=== PATIENT | male | born 1945 | race Caucasian/White ===

== ENCOUNTER → 2019-02-15 | Outpatient (CLI) | payer MEDICARE ==
--- NOTE | 2019-02-15 12:36 | XR ---
EXAMINATION TYPE: XR lumbosacral spine min 4V DATE OF EXAM: 02/15/2019 COMPARISON: None HISTORY: Low back pain TECHNIQUE: Five-view lumbar spine FINDINGS: There 5 lumbar-type tubal bodies. Pedicles are intact. Facet degenerative changes are prese nt L4-5 L5-S1. Vascular calcification is within the aorta. Disc heights are preserved. Vertebral body heights are preserved. Alignment is normal. There is a 1.2 x 0.8 cm calcification at the inferior pole right kidney. IMPRESSION: 1. Degenerative facet changes lower lumbar spine. 2. Lower pole right renal calcification
== END | disposition home or self-care (01) ==
LOC: RADXRYALE 11:45
PROVIDERS: ATTEND Internal Medicine
DX: M47.816 Spondylosis without myelopathy or radiculopathy, lumbar region (principal)
CPT/HCPCS: 72110

== ENCOUNTER → 2019-03-15 | Outpatient (CLI) | payer MEDICARE ==
--- NOTE | 2019-03-15 11:57 | CT ---
EXAMINATION TYPE: CT chest wo con DATE OF EXAM: 03/15/2019 COMPARISON: None HISTORY: difficulty breathing. High resolution protocol CT DLP: 808.3 mGycm. Automated Exposure Control for Dose Reduction was Utilized. TECHNIQUE: CT scan of the thorax is performed without IV contrast. FINDINGS: LUNGS: There is diffuse interlobular septal thickening. Areas of pleural thickening and subsegmental consolidation are noted. Bronchiectasis is noted involving the lung bases and centrally. No pneumotho rax or pleural effusion. MEDIASTINUM: Lack of IV contrast is noted to limit evaluation for mediastinal and especially hilar ad enopathy. There are no definitive greater than 1 cm hilar or mediastinal lymph nodes. Heart size is p rominent there is coronary artery calcification. Atherosclerotic change aorta. Aorta appears of shoaib l caliber. OTHER: Postcholecystectomy changes are noted. Liver and spleen are prominent in size correlate for he patosplenomegaly. IMPRESSION: 1. Diffuse interlobular septal thickening in a pattern most typical of chronic interstitial lung dise ase. Central and basilar bronchiectasis noted correlate for pulmonary fibrosis. 2. Cardiomegaly and coronary artery calcification. 3. Correlate for hepatosplenomegaly.
== END | disposition home or self-care (01) ==
LOC: RADCTMAIN 10:39
PROVIDERS: ATTEND Internal Medicine
DX: J47.9 Bronchiectasis, uncomplicated (principal); J98.4 Other disorders of lung; J84.9 Interstitial pulmonary disease, unspecified; I51.7 Cardiomegaly; I25.10 Atherosclerotic heart disease of native coronary artery without angina pectoris
CPT/HCPCS: 71250

== ENCOUNTER 2019-09-16 07:28 | Emergency (ER) | payer MEDICARE ==
[2019-09-16] MEDS ORDERED: ONDANSETRON 4 MG/2 ML VIAL IVP STA ×2 (07:47→08:32)
[2019-09-16] MEDS ORDERED: SODIUM CHLORIDE 0.9% 1,000 ML IV STA (07:47)
[2019-09-16] MEDS ORDERED: MORPHINE SULFATE 4 MG/ML SYRINGE IV STA (07:47)
--- NOTE | 2019-09-16 07:50 | ED ---
Abdominal Pain HPI - General Chief Complaint: Abdominal Pain Stated Complaint: vomiting ,rt side abd pain Time Seen by Provider: 09/16/19 07:39 Source: patient, RN notes reviewed Mode of arrival: wheelchair Limitations: no limitations - History of Present Illness Initial Comments: 74-year-old male presents emergency Department with chief complaint right flank pain. Patient states the pain started around 2 AM sudden onset. Patient slipped in his back now for his lower abdomen. Patient states he runs of 1 had gallstones. He does admit to nausea vomiting. He states it mostly bilious in nature no hematemesis or coffee-ground emesis. He denies any dysuria hematuria no diarrhea or constipation. Patient does admit that he is primary fibrosis he is at his normal breathing, is on home O2 he denies feeling any chest pain or shortness breath from his usual baseline. - Related Data Previous Rx's Medication Instructions Recorded HYDROcodone/APAP 7.5-325MG [[place] 1 tab PO Q6HR PRN 3 Days #12 tab 09/16/19 7.5-325] Ketorolac [Toradol] 10 mg PO Q8HR #15 tab 09/16/19 Ondansetron Odt [Zofran Odt] 4 mg PO Q8HR PRN #14 tab 09/16/19 Tamsulosin [Flomax] 0.4 mg PO DAILY #7 cap 09/16/19 Allergies Allergy/AdvReac Type Severity Reaction Status Date / Time No Known Allergies Allergy Verified 09/16/19 07:38 Review of Systems ROS Statement: Those systems with pertinent positive or pertinent negative responses have been documented in the HPI. ROS Other: All systems not noted in ROS Statement are negative. Past Medical History Additional Past Medical History / Comment(s): pulmonary fibrosis History of Any Multi-Drug Resistant Organisms: None Reported Past Surgical History: Cholecystectomy Past Psychological History: No Psychological Hx Reported Smoking Status: Former smoker Past Alcohol Use History: None Reported Past Drug Use History: None Reported General Exam Limitations: no limitations General appearance: alert, in no apparent distress Head exam: Present: atraumatic, normocephalic, normal inspection Eye exam: Present: normal appearance, PERRL, EOMI. Absent: scleral icterus, conjunctival injection, periorbital swelling ENT exam: Present: normal exam, mucous membranes moist Neck exam: Present: normal inspection. Absent: tenderness, meningismus, lymphadenopathy Respiratory exam: Present: decreased breath sounds, other (Supplemental oxygen). Absent: normal lung sounds bilaterally, respiratory distress, wheezes, rales, rhonchi, stridor Cardiovascular Exam: Present: regular rate, normal rhythm, normal heart sounds. Absent: systolic murmur, diastolic murmur, rubs, gallop, clicks GI/Abdominal exam: Present: soft, tenderness (Minimal right-sided), normal bowel sounds. Absent: distended, guarding, rebound, rigid Back exam: Absent: CVA tenderness (R), CVA tenderness (L) Neurological exam: Present: alert, oriented X3 Skin exam: Present: warm, dry, intact, normal color. Absent: rash Course Vital Signs 09/16/19 07:36 Temperature 97.6 F Pulse Rate 74 Respiratory 20 Rate Blood Pressure 144/82 O2 Sat by Pulse 91 L Oximetry - Reevaluation(s) Reevaluation #1: 09/16/19 09:05 Patient updated on results, resting comfortably in bed states his pain is very minimal no nausea currently. Medical Decision Making - Medical Decision Making 74-year-old male presented for right flank pain. Patient has evidence of 1 cm ureteral stone. Patient's pain is controlled. Patient has mild leukocytosis with this is felt to be reactive. Urinalysis does not reveal any signs of infection. Patient CT does show some other nonspecific findings but patient's pain currently is from kidney stone. Patient's case discussed with israel Mcmahon. Patient will follow-up with urology should return parameters were discussed. Patient agrees to plan. - Lab Data Result diagrams: 09/16/19 07:45 09/16/19 07:45 Lab Results 09/16/19 09/16/19 09/16/19 Range/Units 07:45 07:45 08:33 WBC 19.7 H (3.8-10.6) k/uL RBC 5.96 H (4.30-5.90) m/uL Hgb 18.0 H (13.0-17.5) gm/dL Hct 53.5 H (39.0-53.0) % MCV 89.8 (80.0-100.0) fL MCH 30.1 (25.0-35.0) pg MCHC 33.6 (31.0-37.0) g/dL RDW 14.6 (11.5-15.5) % Plt Count 145 L (150-450) k/uL Neutrophils % 84 % Lymphocytes % 9 % Monocytes % 5 % Eosinophils % 1 % Basophils % 0 % Neutrophils # 16.5 H (1.3-7.7) k/uL Lymphocytes # 1.7 (1.0-4.8) k/uL Monocytes # 1.0 (0-1.0) k/uL Eosinophils # 0.2 (0-0.7) k/uL Basophils # 0.0 (0-0.2) k/uL Sodium 136 L (137-145) mmol/L Potassium 4.2 (3.5-5.1) mmol/L Chloride 99 (98-107) mmol/L Carbon Dioxide 28 (22-30) mmol/L Anion Gap 9 mmol/L BUN 20 (9-20) mg/dL Creatinine 0.86 (0.66-1.25) mg/dL Est GFR (CKD-EPI)AfAm >90 (>60 ml/min/1.73 sqM) Est GFR (CKD-EPI)NonAf 84 (>60 ml/min/1.73 sqM) Glucose 238 H (74-99) mg/dL Calcium 9.0 (8.4-10.2) mg/dL Total Bilirubin 2.0 H (0.2-1.3) mg/dL AST 51 (17-59) U/L ALT 48 (4-49) U/L Alkaline Phosphatase 128 H (38-126) U/L Total Protein 7.6 (6.3-8.2) g/dL Albumin 4.0 (3.5-5.0) g/dL Lipase 188 (23-300) U/L Urine Color Yellow Urine Appearance Clear (Clear) Urine pH 5.0 (5.0-8.0) Ur Specific [place] 1.015 (1.001-1.035) Urine Protein Negative (Negative) Urine Glucose (UA) Negative (Negative) Urine Ketones Negative (Negative) Urine Blood Moderate H (Negative) Urine Nitrite Negative (Negative) Urine Bilirubin Negative (Negative) Urine Urobilinogen <2.0 (<2.0) mg/dL Ur Leukocyte Esterase Negative (Negative) Urine RBC 62 H (0-5) /hpf Urine WBC 2 (0-5) /hpf Ur Squamous Epith Cells <1 (0-4) /hpf Urine Mucus Rare H (None) /hpf Disposition Clinical Impression: Ureteral calculi Disposition: HOME SELF-CARE Condition: Stable Instructions (If sedation given, give patient instructions): Kidney Stones (ED) Additional Instructions: Please return to the Emergency Department if symptoms worsen or any other concerns. Prescriptions: Tamsulosin [Flomax] 0.4 mg PO DAILY #7 cap HYDROcodone/APAP 7.5-325MG [[place] 7.5-325] 1 tab PO Q6HR PRN 3 Days #12 tab PRN Reason: pain Ketorolac [Toradol] 10 mg PO Q8HR #15 tab Ondansetron Odt [Zofran Odt] 4 mg PO Q8HR PRN #14 tab PRN Reason: Nausea Is patient prescribed a controlled substance at d/c from ED?: Yes When asked, does pt state using other controlled substances?: No If prescribed controlled substance>3 days was MAPS reviewed?: Prescribed <3 Days If opioid is for acute pain is fill amount 7 days or less?: Yes If Rx opioid, was Start Talking consent form obtained?: Yes Referrals: Savanna Magana MD [Primary Care Provider] - 1-2 days Jose Cruz Lacey MD [STAFF PHYSICIAN] - 1-2 days Time of Disposition: 09:11
[2019-09-16 07:56] LABS: Basophils % (A) 0 %; Eosinophils # (A) 0.2 k/uL (0-0.7); Eosinophils % (A) 1 %; HCT 53.5 % (39.0-53.0); Lymphocytes # (A) 1.7 k/uL (1.0-4.8); Lymphocytes % (A) 9 %; MCH 30.1 pg (25.0-35.0); MCHC 33.6 g/dL (31.0-37.0); MCV 89.8 fL (80.0-100.0); Mean Platelet Volume 6.9; Monocytes % (A) 5 %; Neutrophils # (A) 16.5 k/uL (1.3-7.7); Neutrophils % (A) 84 %; Platelet Count 145 k/uL (150-450); RBC 5.96 m/uL (4.30-5.90); RDW 14.6 % (11.5-15.5); WBC 19.7 k/uL (3.8-10.6)
[2019-09-16 08:05] LABS: ALT 48 U/L (4-49); AST 51 U/L (17-59); African American GFR (CKD) >90 (>60 ml/min/1.73 sqM); Alkaline Phosphatase 128 U/L (38-126); Anion Gap 9 mmol/L; Blood Urea Nitrogen 20 mg/dL (9-20); Carbon Dioxide 28 mmol/L (22-30); Chloride 99 mmol/L (98-107); Glucose 238 mg/dL (74-99); Non-African American GFR(CKD) 84 (>60 ml/min/1.73 sqM); Potassium 4.2 mmol/L (3.5-5.1); Sodium 136 mmol/L (137-145); Total Protein 7.6 g/dL (6.3-8.2)
[2019-09-16] MEDS ORDERED: KETOROLAC 30 MG/ML 1 ML VIAL IVP STA (08:37)
[2019-09-16 08:48] LABS: Appearance,Urine Clear (Clear); Bilirubin,Urine Negative (Negative); Blood,Urine Moderate (Negative); Color,Urine Yellow; Glucose,Urine (UA) Negative (Negative); Ketones,Urine Negative (Negative); Leukocyte Esterase,Urine Negative (Negative); Mucus,Urine Rare /hpf; Nitrite,Urine Negative (Negative); Protein,Urine Negative (Negative); RBC,Urine 62 /hpf (0-5); Specific Gravity,Urine 1.015 (1.001-1.035); Squamous Epithelial Cell,Urine <1 /hpf (0-4); Urobilinogen,Urine <2.0 mg/dL (<2.0); WBC,Urine 2 /hpf (0-5)
--- NOTE | 2019-09-16 08:55 | CT ---
EXAMINATION TYPE: CT abdomen pelvis wo con DATE OF EXAM: 09/16/2019 COMPARISON: CT chest dated 03/15/2019 HISTORY: Rt flank pain CT DLP: 849.7 mGycm Automated exposure control for dose reduction was used. TECHNIQUE: Helical acquisition of images was performed from the lung bases through the pelvis. FINDINGS: LUNG BASES: Honeycombing at the lung bases and advanced fibrotic change is seen with numerous areas o f pleural-parenchymal scarring. Peribronchial cuffing is also seen bilaterally as well as pulmonary v ein engorgement. LIVER/GB: There is intrahepatic air. This area does predominate centrally and is confirmed to be pneu mobilia atelectasis is present in the cystic duct remnant and common bile duct on coronal images. Inf erior vena cava is flattened in the upper abdomen. Gallbladder is surgically absent. PANCREAS: No significant abnormality is seen. SPLEEN: Spleen is enlarged. Spleen measures 15.8 cm in caudal dimension. Small splenule is noted. ADRENALS: No significant abnormality is seen. KIDNEYS: 3 mm calculus at the left lower pole is nonobstructing. There are 3 right upper pole calculi within right upper pole calyces measuring up to 4 mm. The right renal pelvis is markedly dilated wit h moderate dilatation of the calyces. Right obstructing proximal ureteral calculus measures 1.0 cm. T here is surrounding right perinephric fat stranding greater than on the left from acute obstructive u ropathy. ADENOPATHY: No greater than 1 cm short axis lymph node in the abdomen or pelvis. OSSEOUS STRUCTURES: Multiple nonspecific sclerotic foci of the pelvis. Diffuse osseous demineralizat ion. Mild multilevel degenerative change of the spine. BOWEL: Sigmoid diverticula are scattered throughout without localized pericolonic fat stranding. Pro minence of the vasa recta throughout the abdomen. Oral contrast limits evaluation of the bowel. OTHER: Extensive atherosclerosis of the abdominal aorta and its branches. IMPRESSION: 1. OBSTRUCTING 1 CM CALCULUS IN THE PROXIMAL RIGHT URETER CREATES OVERALL SEVERE RIGHT HYDROURETERONE PHROSIS. MULTIPLE NONOBSTRUCTING CALCULI ARE SEEN WITHIN THE SUPERIOR CALYCES OF THE RIGHT KIDNEY AND PUNCTATE CALCULUS THAT IS NONOBSTRUCTING IS ALSO SEEN IN THE LEFT LOWER POLE. OBSTRUCTIVE UROPATHY I N THE RIGHT RESULTS IN MODERATE PERINEPHRIC FAT STRANDING. SUPERIMPOSED PYELONEPHRITIS SHOULD ALSO BE CONSIDERED. 2. THERE IS NEW PNEUMOBILIA OF UNKNOWN ETIOLOGY. 3. EXTENSIVE FIBROTIC CHANGE OF THE LUNGS AND PERIBRONCHIAL CUFFING. 4. SPLENOMEGALY. 5. EXTENSIVE ATHEROSCLEROSIS OF THE ABDOMINAL AORTA AND ITS BRANCHES.
[2019-09-16 09:27] VITALS: BP 132/86; PULSE 86; RESP 16; TEMP 98
== END 2019-09-16 09:26 | disposition home or self-care (01) ==
LOC: EC 07:28
DX: N13.2 Hydronephrosis with renal and ureteral calculous obstruction (principal); D72.829 Elevated white blood cell count, unspecified; Z90.49 Acquired absence of other specified parts of digestive tract; Z87.891 Personal history of nicotine dependence
CPT/HCPCS: 99284; 96374; 96375 ×2; 96376; 96361; 36415; 80053; 83690; 85025; 81001; 74176; J2270; J2405; J1885

== ENCOUNTER → 2019-10-04 | Outpatient (CLI) | payer MEDICARE ==
--- NOTE | 2019-10-04 14:13 | XR ---
EXAMINATION TYPE: XR KUB DATE OF EXAM: 10/04/2019 2:07 PM CLINICAL HISTORY: Right ureter calculi TECHNIQUE: Two supine KUB images of the abdomen are obtained. COMPARISON: CT abdomen and pelvis September 16, 2019.. FINDINGS: The roughly 3 tiny calculi upper to mid pole calyx right kidney measuring up to 4 mm in siz e on CT are less well seen on x-ray. The larger 10 mm calculus proximal right ureter at roughly L3-L4 disc space level on CT also not clearly seen on x-ray. Overall nonobstructive bowel gas pattern. Visualized osseous structures are intact. IMPRESSION: As above.
== END | disposition home or self-care (01) ==
LOC: RADXRYALE 13:47
PROVIDERS: ATTEND Urology
DX: N20.1 Calculus of ureter (principal)
CPT/HCPCS: 74018

== ENCOUNTER 2019-11-17 13:44 | Inpatient (IN) | payer MEDICARE ==
--- NOTE | 2019-11-17 14:01 | ED ---
SOB HPI - General Chief Complaint: Shortness of Breath Stated Complaint: SOB Time Seen by Provider: 11/17/19 14:00 Source: patient, family, EMS, RN notes reviewed, old records reviewed Mode of arrival: EMS Limitations: no limitations - History of Present Illness Initial Comments: This is a 74 show male DF for evaluation patient does have shortness of breath today. Also complaining of some blood in the urine and abdominal pain. History of kidney stones history of severe pulmonary fibrosis. No recent known travel history or sick contacts. Recent inpatient hospitalization secondary to kidney procedure, at this point still complaining of shortness of breath MD Complaint: shortness of breath, cough -: week(s) Severity: moderate Severity scale (1-10): 4 Quality: aching Consistency: constant Improves With: nothing Worsens With: nothing Known History Of: COPD, congestive heart failure Context: recent URI (History of same) Associated Symptoms: chest pain - Related Data Home Medications Medication Instructions Recorded Confirmed ALPRAZolam [Xanax] 0.25 mg PO BID PRN 11/17/19 11/17/19 Ciprofloxacin HCl [Cipro] 500 mg PO Q12HR 11/17/19 11/17/19 Omeprazole Magnesium [PriLOSEC OTC] 20 mg PO HS 11/17/19 11/17/19 Tamsulosin [Flomax] 0.4 mg PO HS 11/17/19 11/17/19 predniSONE 10 mg PO DAILY 11/17/19 11/17/19 Allergies Allergy/AdvReac Type Severity Reaction Status Date / Time No Known Allergies Allergy Verified 11/17/19 14:59 Review of Systems ROS Statement: Those systems with pertinent positive or pertinent negative responses have been documented in the HPI. ROS Other: All systems not noted in ROS Statement are negative. Past Medical History Additional Past Medical History / Comment(s): pulmonary fibrosis History of Any Multi-Drug Resistant Organisms: None Reported Past Surgical History: Cholecystectomy Past Psychological History: No Psychological Hx Reported Smoking Status: Former smoker Past Alcohol Use History: None Reported Past Drug Use History: None Reported General Exam General appearance: alert, in no apparent distress, anxious, in distress Head exam: Present: atraumatic, normocephalic, normal inspection Eye exam: Present: normal appearance, PERRL, EOMI. Absent: scleral icterus, conjunctival injection, periorbital swelling ENT exam: Present: normal exam, mucous membranes moist Neck exam: Present: normal inspection. Absent: tenderness, meningismus, lymphadenopathy Respiratory exam: Present: normal lung sounds bilaterally. Absent: respiratory distress, wheezes, rales, rhonchi, stridor Cardiovascular Exam: Present: regular rate, normal rhythm, normal heart sounds. Absent: systolic murmur, diastolic murmur, rubs, gallop, clicks GI/Abdominal exam: Present: soft, normal bowel sounds. Absent: distended, tenderness, guarding, rebound, rigid Extremities exam: Present: normal inspection, full ROM, normal capillary refill. Absent: tenderness, pedal edema, joint swelling, calf tenderness Back exam: Present: normal inspection Neurological exam: Present: alert, oriented X3, CN II-XII intact Psychiatric exam: Present: normal affect, normal mood Skin exam: Present: warm, dry, intact, normal color. Absent: rash Course Vital Signs 11/17/19 11/17/19 11/17/19 13:45 13:48 13:59 Pulse Rate 107 H 105 H Respiratory 20 22 Rate Blood Pressure 116/73 O2 Sat by Pulse 74 L 89 L Oximetry 11/17/19 11/17/19 11/17/19 14:51 15:54 16:46 Pulse Rate 101 H 104 H Respiratory 20 22 Rate Blood Pressure 110/74 102/70 O2 Sat by Pulse 92 L 84 L 91 L Oximetry - Reevaluation(s) Reevaluation #1: 11/17/19 17:04 medical record is reviewed Reevaluation #2: 11/17/19 17:04 improved is on supplemental o2 - Consultations Consultation #1: spoke dustin iraheta for admission Medical Decision Making - Lab Data Result diagrams: 11/17/19 14:09 11/17/19 14:09 Lab Results 11/17/19 11/17/19 11/17/19 Range/Units 14:09 14:09 14:09 WBC 12.9 H (3.8-10.6) k/uL RBC 4.86 (4.30-5.90) m/uL Hgb 14.3 D (13.0-17.5) gm/dL Hct 43.3 (39.0-53.0) % MCV 89.1 (80.0-100.0) fL MCH 29.5 (25.0-35.0) pg MCHC 33.1 (31.0-37.0) g/dL RDW 16.0 H (11.5-15.5) % Plt Count 224 (150-450) k/uL Neutrophils % 87 % Lymphocytes % 7 % Monocytes % 4 % Eosinophils % 0 % Basophils % 1 % Neutrophils # 11.2 H (1.3-7.7) k/uL Lymphocytes # 0.9 L (1.0-4.8) k/uL Monocytes # 0.5 (0-1.0) k/uL Eosinophils # 0.1 (0-0.7) k/uL Basophils # 0.1 (0-0.2) k/uL Poikilocytosis Slight Anisocytosis Slight PT 11.0 (9.0-12.0) sec INR 1.1 (<1.2) APTT 24.4 (22.0-30.0) sec Sodium 131 L (137-145) mmol/L Potassium 4.1 (3.5-5.1) mmol/L Chloride 94 L (98-107) mmol/L Carbon Dioxide 27 (22-30) mmol/L Anion Gap 10 mmol/L BUN 9 (9-20) mg/dL Creatinine 0.50 L (0.66-1.25) mg/dL Est GFR (CKD-EPI)AfAm >90 (>60 ml/min/1.73 sqM) Est GFR (CKD-EPI)NonAf >90 (>60 ml/min/1.73 sqM) Glucose 192 H (74-99) mg/dL Plasma Lactic Acid [place] (0.7-2.0) mmol/L Calcium 8.7 (8.4-10.2) mg/dL Magnesium 2.1 (1.6-2.3) mg/dL Total Bilirubin 2.0 H (0.2-1.3) mg/dL AST 40 (17-59) U/L ALT 30 (4-49) U/L Alkaline Phosphatase 136 H (38-126) U/L Troponin I (0.000-0.034) ng/mL NT-Pro-B Natriuret Pep pg/mL Total Protein 6.8 (6.3-8.2) g/dL Albumin 3.3 L (3.5-5.0) g/dL Urine Color Urine Appearance (Clear) Urine pH (5.0-8.0) Ur Specific [place] (1.001-1.035) Urine Protein (Negative) Urine Glucose (UA) (Negative) Urine Ketones (Negative) Urine Blood (Negative) Urine Nitrite (Negative) Urine Bilirubin (Negative) Urine Urobilinogen (<2.0) mg/dL Ur Leukocyte Esterase (Negative) Urine RBC (0-5) /hpf Urine WBC (0-5) /hpf Ur Squamous Epith Cells (0-4) /hpf Hyaline Casts (0-2) /lpf Urine Mucus (None) /hpf 11/17/19 11/17/19 11/17/19 Range/Units 14:09 14:09 14:09 WBC (3.8-10.6) k/uL RBC (4.30-5.90) m/uL Hgb (13.0-17.5) gm/dL Hct (39.0-53.0) % MCV (80.0-100.0) fL MCH (25.0-35.0) pg MCHC (31.0-37.0) g/dL RDW (11.5-15.5) % Plt Count (150-450) k/uL Neutrophils % % Lymphocytes % % Monocytes % % Eosinophils % % Basophils % % Neutrophils # (1.3-7.7) k/uL Lymphocytes # (1.0-4.8) k/uL Monocytes # (0-1.0) k/uL Eosinophils # (0-0.7) k/uL Basophils # (0-0.2) k/uL Poikilocytosis Anisocytosis PT (9.0-12.0) sec INR (<1.2) APTT (22.0-30.0) sec Sodium (137-145) mmol/L Potassium (3.5-5.1) mmol/L Chloride (98-107) mmol/L Carbon Dioxide (22-30) mmol/L Anion Gap mmol/L BUN (9-20) mg/dL Creatinine (0.66-1.25) mg/dL Est GFR (CKD-EPI)AfAm (>60 ml/min/1.73 sqM) Est GFR (CKD-EPI)NonAf (>60 ml/min/1.73 sqM) Glucose (74-99) mg/dL Plasma Lactic Acid [place] 1.7 (0.7-2.0) mmol/L Calcium (8.4-10.2) mg/dL Magnesium (1.6-2.3) mg/dL Total Bilirubin (0.2-1.3) mg/dL AST (17-59) U/L ALT (4-49) U/L Alkaline Phosphatase (38-126) U/L Troponin I 0.413 H* (0.000-0.034) ng/mL NT-Pro-B Natriuret Pep 2060 pg/mL Total Protein (6.3-8.2) g/dL Albumin (3.5-5.0) g/dL Urine Color Urine Appearance (Clear) Urine pH (5.0-8.0) Ur Specific [place] (1.001-1.035) Urine Protein (Negative) Urine Glucose (UA) (Negative) Urine Ketones (Negative) Urine Blood (Negative) Urine Nitrite (Negative) Urine Bilirubin (Negative) Urine Urobilinogen (<2.0) mg/dL Ur Leukocyte Esterase (Negative) Urine RBC (0-5) /hpf Urine WBC (0-5) /hpf Ur Squamous Epith Cells (0-4) /hpf Hyaline Casts (0-2) /lpf Urine Mucus (None) /hpf 11/17/19 Range/Units 16:43 WBC (3.8-10.6) k/uL RBC (4.30-5.90) m/uL Hgb (13.0-17.5) gm/dL Hct (39.0-53.0) % MCV (80.0-100.0) fL MCH (25.0-35.0) pg MCHC (31.0-37.0) g/dL RDW (11.5-15.5) % Plt Count (150-450) k/uL Neutrophils % % Lymphocytes % % Monocytes % % Eosinophils % % Basophils % % Neutrophils # (1.3-7.7) k/uL Lymphocytes # (1.0-4.8) k/uL Monocytes # (0-1.0) k/uL Eosinophils # (0-0.7) k/uL Basophils # (0-0.2) k/uL Poikilocytosis Anisocytosis PT (9.0-12.0) sec INR (<1.2) APTT (22.0-30.0) sec Sodium (137-145) mmol/L Potassium (3.5-5.1) mmol/L Chloride (98-107) mmol/L Carbon Dioxide (22-30) mmol/L Anion Gap mmol/L BUN (9-20) mg/dL Creatinine (0.66-1.25) mg/dL Est GFR (CKD-EPI)AfAm (>60 ml/min/1.73 sqM) Est GFR (CKD-EPI)NonAf (>60 ml/min/1.73 sqM) Glucose (74-99) mg/dL Plasma Lactic Acid [place] (0.7-2.0) mmol/L Calcium (8.4-10.2) mg/dL Magnesium (1.6-2.3) mg/dL Total Bilirubin (0.2-1.3) mg/dL AST (17-59) U/L ALT (4-49) U/L Alkaline Phosphatase (38-126) U/L Troponin I (0.000-0.034) ng/mL NT-Pro-B Natriuret Pep pg/mL Total Protein (6.3-8.2) g/dL Albumin (3.5-5.0) g/dL Urine Color Yellow Urine Appearance Clear (Clear) Urine pH 6.0 (5.0-8.0) Ur Specific [place] 1.014 (1.001-1.035) Urine Protein Trace H (Negative) Urine Glucose (UA) Negative (Negative) Urine Ketones Negative (Negative) Urine Blood Small H (Negative) Urine Nitrite Negative (Negative) Urine Bilirubin Negative (Negative) Urine Urobilinogen <2.0 (<2.0) mg/dL Ur Leukocyte Esterase Negative (Negative) Urine RBC 28 H (0-5) /hpf Urine WBC 1 (0-5) /hpf Ur Squamous Epith Cells <1 (0-4) /hpf Hyaline Casts 1 (0-2) /lpf Urine Mucus Moderate H (None) /hpf - EKG Data -: EKG Interpreted by Me (EKG shows tachycardia rate of 104 NM 160 QRS 90 QTC 444) Critical Care Time Critical Care Time: Yes Total Critical Care Time: 31 Disposition Clinical Impression: Acute exacerbation of chronic obstructive pulmonary disease, Acute respiratory failure, Hypoxia, Congestive heart failure Disposition: ADMITTED IP TO THIS HOSP Condition: Serious Is patient prescribed a controlled substance at d/c from ED?: No Referrals: Savanna Magana MD [Primary Care Provider] - 1-2 days
[2019-11-17] MEDS ORDERED: IPRATROPIUM-ALBUTEROL 3 ML NEB INHALATION STA ×2 (14:02→16:55)
[2019-11-17] MEDS ORDERED: SODIUM CHLORIDE 0.9% 1,000 ML IV STA (14:02)
[2019-11-17 14:30] LABS: Anisocytosis Slight; Basophils # (A) 0.1 k/uL (0-0.2); Basophils % (A) 1 %; Eosinophils # (A) 0.1 k/uL (0-0.7); Eosinophils % (A) 0 %; HCT 43.3 % (39.0-53.0); Lymphocytes # (A) 0.9 k/uL (1.0-4.8); Lymphocytes % (A) 7 %; MCH 29.5 pg (25.0-35.0); MCHC 33.1 g/dL (31.0-37.0); MCV 89.1 fL (80.0-100.0); Mean Platelet Volume 6.9; Monocytes # (A) 0.5 k/uL (0-1.0); Monocytes % (A) 4 %; Neutrophils # (A) 11.2 k/uL (1.3-7.7); Neutrophils % (A) 87 %; Platelet Count 224 k/uL (150-450); Poikilocytosis Slight; RBC 4.86 m/uL (4.30-5.90); WBC 12.9 k/uL (3.8-10.6)
--- NOTE | 2019-11-17 14:34 | XR ---
EXAMINATION TYPE: XR chest 1V portable DATE OF EXAM: 11/17/2019 Comparison: 09/22/2019 Clinical History: 74-year-old male shortness of breath Findings: Heart is enlarged. Increased diffuse interstitial and nonconflicting airspace opacities. No sizable e ffusion on the frontal view. Impression: Cardiomegaly and developing diffuse bilateral airspace disease. Correlate for pulmonary edema.
[2019-11-17 14:36] LABS: HGB 14.3 gm/dL (13.0-17.5)
[2019-11-17 14:40] LABS: ALT 30 U/L (4-49); AST 40 U/L (17-59); African American GFR (CKD) >90 (>60 ml/min/1.73 sqM); Albumin 3.3 g/dL (3.5-5.0); Alkaline Phosphatase 136 U/L (38-126); Anion Gap 10 mmol/L; Blood Urea Nitrogen 9 mg/dL (9-20); Calcium 8.7 mg/dL (8.4-10.2); Carbon Dioxide 27 mmol/L (22-30); Chloride 94 mmol/L (98-107); Glucose 192 mg/dL (74-99); Magnesium 2.1 mg/dL (1.6-2.3); Non-African American GFR(CKD) >90 (>60 ml/min/1.73 sqM); Potassium 4.1 mmol/L (3.5-5.1); Sodium 131 mmol/L (137-145); Total Protein 6.8 g/dL (6.3-8.2)
[2019-11-17 14:45] LABS: INR 1.1 (<1.2); Partial Thromboplastin Time 24.4 sec (22.0-30.0)
--- NOTE | 2019-11-17 15:48 | CT ---
EXAMINATION TYPE: CT abdomen pelvis wo con DATE OF EXAM: 11/17/2019 COMPARISON: 09/16/2019 HISTORY: flank pain CT DLP: 986.8 mGycm Examination of the solid and hollow viscera is limited given the lack of contrast. Unenhanced CT of t he abdomen and pelvis was performed. Patient motion limits evaluation. FINDINGS: LUNG BASES: No evidence for nodule. No evidence for infiltrate. Basilar pulmonary fibrosis identified . LIVER/GB: The gallbladder is unremarkable. No space-occupying hepatic lesion. PANCREAS: No pancreatic mass identified. No inflammatory process seen. SPLEEN: Splenomegaly with craniocaudal measurement of 15 cm. No intrasplenic lesions seen. ADRENALS: No adrenal nodules identified. No evidence for thickening. KIDNEYS: No evidence for renal mass. Nonobstructing bilateral nephrolithiasis. No hydronephrosis. BOWEL: Appendix has a normal appearance. No evidence of bowel obstruction. No inflammatory process. Lymph nodes: No evidence for adenopathy greater than 1 cm. Abdominal aorta: Atheromatous changes seen. No evidence for aneurysm. Genital organs: No significant abnormality. Other: No significant abnormality. IMPRESSION: 1. Nonobstructing nephrolithiasis bilaterally. 2. Sigmoid diverticulosis without diverticulitis. 3. Pulmonary fibrosis. 4. Splenomegaly.
[2019-11-17] MEDS ORDERED: IPRATROPIUM-ALBUTEROL 3 ML NEB INHALATION PRN (16:55)
[2019-11-17] MEDS ORDERED: methylPREDNISolone SOD SUCCI 125 MG/2 ML VIAL IV STA (16:55)
[2019-11-17 17:00] LABS: Appearance,Urine Clear (Clear); Bilirubin,Urine Negative (Negative); Blood,Urine Small (Negative); Color,Urine Yellow; Glucose,Urine (UA) Negative (Negative); Hyaline Casts,Urine 1 /lpf (0-2); Ketones,Urine Negative (Negative); Leukocyte Esterase,Urine Negative (Negative); Mucus,Urine Moderate /hpf; Nitrite,Urine Negative (Negative); Protein,Urine Trace (Negative); RBC,Urine 28 /hpf (0-5); Specific Gravity,Urine 1.014 (1.001-1.035); Squamous Epithelial Cell,Urine <1 /hpf (0-4); Urobilinogen,Urine <2.0 mg/dL (<2.0); WBC,Urine 1 /hpf (0-5)
[2019-11-17] MEDS: SODIUM CHLORIDE 0.9% 1,000 ML IV SCH (17:39)
--- NOTE | 2019-11-17 17:39 | P.HPIM ---
History of Present Illness Patient is a pleasant 74-year-old male with known history of pulmonary fibrosis exists 5 L of oxygen at home came in with complaints of shortness of breath denied any fever chills chest x-ray did not show pneumonia. Patient denied any orthopnea proximal nocturnal dyspnea. Patient denied any chest pain. Patient does have mildly elevated troponin of 0.[address]-T wave changes in the EKG. Patient denied any fever chills or significant cough. Patient is presently on Ventimask. Patient is bit hyponatremic chest x-ray looks like pulmonary congestion but mostly probably pulmonary fibrosis. Patient does have significant crackles bilaterally no wheezing and exam patient does have mildly elevated BNP of 2000 along with mildly elevated troponin of 0.413 patient although doesn't have any JVD or pedal edema on exam. Patient is comparing of hematuria patient has 28 white blood cell count in the urine and nonobstructive nephrolithiasis on the CAT scan of the abdomen and also diverticulosis. Review of Systems REVIEW OF SYSTEMS: CONSTITUTIONAL: No fever, no malaise, no fatigue. HEENT: No recent visual problems or hearing problems. Denied any sore throat. CARDIOVASCULAR: No chest pain, orthopnea, PND, no palpitations, no syncope. PULMONARY: no hemoptysis. GASTROINTESTINAL: No diarrhea, no nausea, no vomiting, no abdominal pain. NEUROLOGICAL: No headaches, no weakness, no numbness. HEMATOLOGICAL: Denies any bleeding or petechiae. GENITOURINARY: Denies any burning micturition, frequency, or urgency. MUSCULOSKELETAL/RHEUMATOLOGICAL: Denies any joint pain, swelling, or any muscle pain. ENDOCRINE: Denies any polyuria or polydipsia. The rest of the 14-point review of systems is negative. Past Medical History Additional Past Medical History / Comment(s): pulmonary fibrosis History of Any Multi-Drug Resistant Organisms: None Reported Past Surgical History: Cholecystectomy Past Psychological History: No Psychological Hx Reported Smoking Status: Former smoker Past Alcohol Use History: None Reported Past Drug Use History: None Reported Medications and Allergies Home Medications Medication Instructions Recorded Confirmed Type ALPRAZolam [Xanax] 0.25 mg PO BID PRN 11/17/19 11/17/19 History Ciprofloxacin HCl [Cipro] 500 mg PO Q12HR 11/17/19 11/17/19 History Omeprazole Magnesium [PriLOSEC OTC] 20 mg PO HS 11/17/19 11/17/19 History Tamsulosin [Flomax] 0.4 mg PO HS 11/17/19 11/17/19 History predniSONE 10 mg PO DAILY 11/17/19 11/17/19 History Allergies Allergy/AdvReac Type Severity Reaction Status Date / Time No Known Allergies Allergy Verified 11/17/19 14:59 Physical Exam Vitals: Vital Signs Pulse Resp BP Pulse Ox 11/17/19 16:46 104 H 22 102/70 91 L 11/17/19 15:54 84 L 11/17/19 14:51 101 H 20 110/74 92 L 11/17/19 13:59 22 11/17/19 13:48 105 H 89 L 11/17/19 13:45 107 H 20 116/73 74 L Intake and Output 11/17/19 11/17/19 11/17/19 06:59 14:59 22:59 Other: Weight 83.915 kg PHYSICAL EXAMINATION: GENERAL: The patient is alert and oriented x3, not in any acute distress. Well developed, well nourished. HEENT: Pupils are round and equally reacting to light. EOMI. No scleral icterus. No conjunctival pallor. Normocephalic, atraumatic. No pharyngeal erythema. No thyromegaly. CARDIOVASCULAR: S1 and S2 present. No murmurs, rubs, or gallops. PULMONARY: Diffuse bilateral fine crackles on exam ABDOMEN: Soft, nontender, nondistended, normoactive bowel sounds. No palpable organomegaly. MUSCULOSKELETAL: No joint swelling or deformity. EXTREMITIES: No cyanosis, clubbing, or pedal edema. NEUROLOGICAL: Gross neurological examination did not reveal any focal deficits. SKIN: No rashes. Results CBC & Chem 7: 11/17/19 14:09 11/17/19 14:09 Labs: Abnormal Lab Results - Last 24 Hours (Table) 11/17/19 11/17/19 11/17/19 Range/Units 14:09 14:09 14:09 WBC 12.9 H (3.8-10.6) k/uL RDW 16.0 H (11.5-15.5) % Neutrophils # 11.2 H (1.3-7.7) k/uL Lymphocytes # 0.9 L (1.0-4.8) k/uL Sodium 131 L (137-145) mmol/L Chloride 94 L (98-107) mmol/L Creatinine 0.50 L (0.66-1.25) mg/dL Glucose 192 H (74-99) mg/dL Total Bilirubin 2.0 H (0.2-1.3) mg/dL Alkaline Phosphatase 136 H (38-126) U/L Troponin I 0.413 H* (0.000-0.034) ng/mL Albumin 3.3 L (3.5-5.0) g/dL Urine Protein (Negative) Urine Blood (Negative) Urine RBC (0-5) /hpf Urine Mucus (None) /hpf 11/17/19 Range/Units 16:43 WBC (3.8-10.6) k/uL RDW (11.5-15.5) % Neutrophils # (1.3-7.7) k/uL Lymphocytes # (1.0-4.8) k/uL Sodium (137-145) mmol/L Chloride (98-107) mmol/L Creatinine (0.66-1.25) mg/dL Glucose (74-99) mg/dL Total Bilirubin (0.2-1.3) mg/dL Alkaline Phosphatase (38-126) U/L Troponin I (0.000-0.034) ng/mL Albumin (3.5-5.0) g/dL Urine Protein Trace H (Negative) Urine Blood Small H (Negative) Urine RBC 28 H (0-5) /hpf Urine Mucus Moderate H (None) /hpf Assessment and Plan Plan: -Acute on chronic hypoxic respiratory failure: Probably secondary to flareup of our exacerbation of pulmonary fibrosis patient was started on systemic steroids continue with inhalational treatments as needed. -Hyponatremia appears to be mostly hypovolemic hyponatremia rather than hypervolemic hyponatremia patient will be hydrated gently. My suspicion for congestive heart failure is low patient has mildly elevated BNP but there is no JVD or pedal edema on exam chest x-ray findings of pulmonary congestion is probably secondary to fibrosis rather than pulmonary edema. No evidence of pneumonia. Echocardiogram will be obtained as well -Bilateral nonobstructive nephrolithiasis -Mildly elevated troponins will repeat couple more troponins and cardiology will evaluate the patient troponins elevation is most probably suffered from hypoxemia although I cannot completely rule out non-ST elevation microinfarction -Leukocytosis reactive in nature -Tachycardia secondary to hypoxemia
[2019-11-17] MEDS ORDERED: methylPREDNISolone SOD SUCCI 125 MG/2 ML VIAL IV SCH (18:00)
[2019-11-17 18:09] LABS: Creatine Kinase MB 3.1 ng/mL (0.0-2.4)
[2019-11-17 18:10] LABS: Troponin I 0.565 ng/mL (0.000-0.034)
[2019-11-17] MEDS: ALBUTEROL NEBULIZED 2.5 MG/3 ML INHALATION SCH (19:18)
[2019-11-17] MEDS: FAMOTIDINE 20 MG TAB PO SCH (20:08)
[2019-11-17] MEDS ORDERED: ALPRAZolam 0.25 MG TAB PO PRN (20:29)
[2019-11-17 20:34] LABS: Glucose,Whole Blood 161 mg/dL (75-99)
[2019-11-17] MEDS: TAMSULOSIN 0.4 MG CAP.ER.24H PO SCH (21:13)
[2019-11-18] MEDS: methylPREDNISolone SOD SUCCI 40 MG/ML 1 ML VIAL IV SCH ×4 (00:09→23:29)
[2019-11-18 00:38] LABS: Glucose,Whole Blood 299 mg/dL (75-99)
[2019-11-18 06:09] LABS: Glucose,Whole Blood 232 mg/dL (75-99)
[2019-11-18] MEDS: INSULIN ASPART (NovoLOG) 100 UNIT/ML VIAL SQ SCH ×4 (06:28→20:53)
[2019-11-18] MEDS: ALBUTEROL NEBULIZED 2.5 MG/3 ML INHALATION SCH ×4 (07:54→20:22)
[2019-11-18 08:11] LABS: HCT 43.6 % (39.0-53.0); HGB 14.3 gm/dL (13.0-17.5); MCH 29.8 pg (25.0-35.0); MCHC 32.9 g/dL (31.0-37.0); MCV 90.5 fL (80.0-100.0); Mean Platelet Volume 7.1; Platelet Count 219 k/uL (150-450); Poikilocytosis Slight; RBC 4.82 m/uL (4.30-5.90); RDW 15.9 % (11.5-15.5)
[2019-11-18 08:20] LABS: African American GFR (CKD) >90 (>60 ml/min/1.73 sqM); Anion Gap 8 mmol/L; Blood Urea Nitrogen 15 mg/dL (9-20); Calcium 8.5 mg/dL (8.4-10.2); Carbon Dioxide 29 mmol/L (22-30); Chloride 98 mmol/L (98-107); Glucose 215 mg/dL (74-99); Non-African American GFR(CKD) >90 (>60 ml/min/1.73 sqM); Potassium 4.2 mmol/L (3.5-5.1); Sodium 135 mmol/L (137-145)
[2019-11-18] MEDS: FAMOTIDINE 20 MG TAB PO SCH ×2 (08:48→20:53)
[2019-11-18] MEDS: ENOXAPARIN 40 MG/0.4 ML SYRINGE SQ SCH (08:48)
[2019-11-18] MEDS: SODIUM CHLORIDE 0.9% 1,000 ML IV SCH ×2 (10:39→23:29)
[2019-11-18] MEDS: DOXYCYCLINE 100 MG CAP PO SCH ×2 (10:46→20:53)
--- NOTE | 2019-11-18 11:20 | P.CRDCN ---
History of Present Illness Consult date: 11/18/19 History of present illness: This is a 74-year-old gentleman with history of pulmonary fibrosis who is on 5 L oxygen at home. Patient has been having some episodes of shortness of breath and has been on steroids with tapering doses. Recently his her steroids were cut back to 5 mg. Patient claims he became short of breath again. He did complain of some orthopnea. Denied any chest pain. Patient came to the hospital because of this ongoing symptoms. His troponin was mildly elevated and 10 is consistent with acute coronary syndrome/non-STEMI. His proBNP is also elevated size to possible CHF. Whole patient has a combination of pulmonary fibrosis with soap and CHF and possible non-STEMI. We will get an echocardiogram to assess LV function. If there is any segmental wall motion defects or LV dysfunction, patient definitely needs cardiac catheterization to rule out underlying ischemic heart disease. Patient seemed to be feeling slightly better since admission to the hospital here. EKG showed mild nonspecific ST-T abnormalities. I will add small dose of diuretics along with nitrates and aspirin, while waiting for the echo report. 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 History of Any Multi-Drug Resistant Organisms: None Reported Past Surgical History: Cholecystectomy Past Anesthesia/Blood Transfusion Reactions: No Reported Reaction Smoking Status: Former smoker Medications and Allergies Home Medications Medication Instructions Recorded Confirmed Type ALPRAZolam [Xanax] 0.25 mg PO BID PRN 11/17/19 11/17/19 History Ciprofloxacin HCl [Cipro] 500 mg PO Q12HR 11/17/19 11/17/19 History Omeprazole Magnesium [PriLOSEC OTC] 20 mg PO HS 11/17/19 11/17/19 History Tamsulosin [Flomax] 0.4 mg PO HS 11/17/19 11/17/19 History predniSONE 10 mg PO DAILY 11/17/19 11/17/19 History Allergies Allergy/AdvReac Type Severity Reaction Status Date / Time No Known Allergies Allergy Verified 11/17/19 14:59 Physical Exam Vitals: Vital Signs Temp Pulse Pulse Resp BP BP Pulse Ox 11/18/19 09:02 23 11/18/19 08:46 97.5 F L 101 H 23 101/69 91 L 11/18/19 07:56 90 L 11/18/19 03:40 97.7 F 83 24 110/67 98 11/18/19 00:00 98.4 F 94 24 100/64 94 L 11/17/19 21:53 95 11/17/19 20:00 98.0 F 101 H 26 H 102/69 89 L 11/17/19 19:16 89 L 11/17/19 19:00 102 H 28 H 122/71 87 L 11/17/19 18:28 96 20 97/69 93 L 11/17/19 17:41 97.5 F L 98 22 104/74 90 L 11/17/19 16:46 104 H 22 102/70 91 L 11/17/19 15:54 84 L 11/17/19 14:51 101 H 20 110/74 92 L 11/17/19 13:59 22 11/17/19 13:48 105 H 89 L 11/17/19 13:45 107 H 20 116/73 74 L Intake and Output 11/17/19 11/18/19 11/18/19 22:59 06:59 14:59 Output Total 200 300 Balance -200 -300 Output: Urine 200 300 Other: Voiding Method Urinal Urinal Urinal # Voids 1 1 Weight 83.915 kg 81 kg GENERAL EXAM: Patient is alert and oriented and doesn't appear to be in any acute distress HEENT: Normocephalic. Normal reaction of pupils, equal size, normal range of extraocular motion. No erythema or exudates in the throat. NECK: No masses, no nuchal rigidity. CHEST: No chest wall deformity. LUNGS: Bronchial breath sounds on both sides with inspiratory basilar rales HEART: S1 and S2 normal with no audible mumurs or gallops. Regular rhythm, femorals equal on both sides.. ABDOMEN: No hepatosplenomegaly, normal bowel sounds, no guarding or rigidity. SKIN: No rashes CENTRAL NERVOUS SYSTEM: No focal deficits. EXTREMITIES: No cyanosis, clubbing or edema. Results 11/18/19 07:02 11/18/19 07:02 Cardiac Enzymes 11/17/19 11/17/19 11/17/19 Range/Units 14:09 14:09 17:17 AST 40 (17-59) U/L CK-MB (CK-2) 3.1 H (0.0-2.4) ng/mL Troponin I 0.413 H* 0.565 H* (0.000-0.034) ng/mL 11/17/19 Range/Units 20:01 AST (17-59) U/L CK-MB (CK-2) (0.0-2.4) ng/mL Troponin I 0.712 H* (0.000-0.034) ng/mL Coagulation 11/17/19 Range/Units 14:09 PT 11.0 (9.0-12.0) sec APTT 24.4 (22.0-30.0) sec CBC 11/17/19 11/18/19 Range/Units 14:09 07:02 WBC 12.9 H 8.0 (3.8-10.6) k/uL RBC 4.86 4.82 (4.30-5.90) m/uL Hgb 14.3 D 14.3 (13.0-17.5) gm/dL Hct 43.3 43.6 (39.0-53.0) % Plt Count 224 219 (150-450) k/uL Comprehensive Metabolic Panel 11/17/19 11/18/19 Range/Units 14:09 07:02 Sodium 131 L 135 L (137-145) mmol/L Potassium 4.1 4.2 (3.5-5.1) mmol/L Chloride 94 L 98 (98-107) mmol/L Carbon Dioxide 27 29 (22-30) mmol/L BUN 9 15 (9-20) mg/dL Creatinine 0.50 L 0.48 L (0.66-1.25) mg/dL Glucose 192 H 215 H (74-99) mg/dL Calcium 8.7 8.5 (8.4-10.2) mg/dL AST 40 (17-59) U/L ALT 30 (4-49) U/L Alkaline Phosphatase 136 H (38-126) U/L Total Protein 6.8 (6.3-8.2) g/dL Albumin 3.3 L (3.5-5.0) g/dL Current Medications Generic Name Dose Route Start Last Admin Trade Name Freq PRN Reason Stop Dose Admin Albuterol Sulfate 2.5 mg 11/17/19 20:00 11/18/19 07:54 Ventolin Nebulized INHALATION Not Given RT-QID TYESHA Albuterol/Ipratropium 3 ml 11/17/19 16:55 Duoneb 0.5 Mg-3 Mg/3 Ml Soln INHALATION RT-Q4H PRN Shortness Of Breath Or Wheezing Alprazolam 0.25 mg 11/17/19 20:29 11/18/19 08:54 Xanax PO 0.25 mg BID PRN Administration Anxiety Doxycycline Monohydrate 100 mg 11/18/19 10:00 11/18/19 10:46 Vibramycin PO 100 mg BID TYESHA Administration Enoxaparin Sodium 40 mg 11/18/19 09:00 11/18/19 08:48 Lovenox SQ 40 mg DAILY TYESHA Administration Famotidine 20 mg 11/17/19 21:00 11/18/19 08:48 Pepcid PO 20 mg BID TYESHA Administration Sodium Chloride 1,000 mls @ 50 mls/hr 11/17/19 17:30 11/18/19 10:39 Saline 0.9% IV Not Given .Q20H TYESHA Insulin Aspart 0 unit 11/18/19 07:30 11/18/19 06:28 Novolog SQ 8 unit ACHS TYESHA Administration Protocol Methylprednisolone Sodium Succinate 40 mg 11/18/19 00:00 11/18/19 08:48 Solu-Medrol IV 40 mg Q8HR TYESHA Administration Tamsulosin HCl 0.4 mg 11/17/19 21:00 11/17/19 21:13 Flomax PO 0.4 mg HS TYESHA Administration Intake and Output 11/17/19 11/18/19 11/18/19 22:59 06:59 14:59 Output Total 200 300 Balance -200 -300 Output: Urine 200 300 Other: Voiding Method Urinal Urinal Urinal # Voids 1 1 Weight 83.915 kg 81 kg 11/18/19 07:02 11/18/19 07:02 - Imaging and Cardiology Comment: Chest x-ray showed pulmonary fibrosis and possible CHF - EKG Interpretation EKG: sinus rhythm, normal ST/T EKG Interpretations (text) Sinus rhythm with nonspecific ST-T changes Assessment and Plan (1) Non-STEMI (non-ST elevated myocardial infarction) Current Visit: Yes Status: Acute Code(s): I21.4 - NON-ST ELEVATION (NSTEMI) MYOCARDIAL INFARCTION SNOMED Code(s): 69427455 (2) Acute exacerbation of chronic obstructive pulmonary disease Current Visit: Yes Status: Acute Code(s): J44.1 - CHRONIC OBSTRUCTIVE PULMONARY DISEASE W (ACUTE) EXACERBATION SNOMED Code(s): 782343179 (3) Congestive heart failure Current Visit: Yes Status: Acute Code(s): I50.9 - HEART FAILURE, UNSPECIFIED SNOMED Code(s): 18320214 Plan: I'll start him on small dose of diuretics along with nitrates, aspirin, and also PATRICE inhibitor. Get an echocardiogram. Further examination depend on the clinical course. Patient may need cardiac catheterization for definitive diagnosis
[2019-11-18 11:29] LABS: Glucose,Whole Blood 227 mg/dL (75-99)
--- NOTE | 2019-11-18 12:09 | P.CNPUL ---
History of Present Illness Consult date: 11/18/19 Reason for consult: dyspnea, cough Chief complaint: Shortness of breath History of present illness: This is a 74-year-old white male, familiar to my service, known history of idiopathic pulmonary fibrosis, been evaluated previously at the [facility], and I have been seeing this patient for the last 8 months. Patient has chronic hypoxic respiratory failure secondary to his underlying pulmonary fibrosis, has been treated recently with prednisone and I have tapered the prednisone down to 5 mg daily maintenance. Patient declined going on pirfenedone in the past. Patient presented to the ER yesterday with worsening shortness of breath for the last few days, occasional cough, no wheezing, no fever, no chills, no hemoptysis. Patient states that his shortness of breath seems to be more pronounced since he went down from 10 mg to 5 mg of prednisone. Patient was also noted to have hematuria and CT of the abdomen and pelvis showed nonobstructing nephrolithiasis. Chest x-ray showed cardiomegaly and diffuse bilateral airspace disease, interstitial lung disease, possibility of underlying pulmonary edema is not entirely ruled out. Troponin was elevated, BNP was elevated. Patient was admitted, placed on bronchodilators, IV Solu- Medrol, and I recommended adding doxycycline. He was seen by cardiology, felt that the patient may have had non-ST elevation myocardial infarction and underlying component of congestive heart failure. Placed on Lasix at 20 mg IV push every 12 hours. He is also presently on high flow oxygen 80% FiO2 and 45 L/m flow via airvo Review of Systems CONSTITUTIONAL: No fever no chills no weight loss HEENT: No diplopia, no sore throat, no hearing issues. CARDIOVASCULAR: No chest pain orthopnea or PND PULMONARY: As noted in HPI mostly shortness of breath with any activity. GASTROINTESTINAL: Denies nausea vomiting abdominal pain melena or hematemesis. NEUROLOGICAL: Denies headache blurred vision or dizziness HEMATOLOGICAL: No clotting bleeding or bruising GENITOURINARY: Denies frequency urgency or hematuria. But he was noted to have hematuria in the ER. MUSCULOSKELETAL/RHEUMATOLOGICAL: Denies any symptoms of arthralgia or myalgia. ENDOCRINE: Denies heat or cold intolerance. 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 History of Any Multi-Drug Resistant Organisms: None Reported Past Surgical History: Cholecystectomy Past Anesthesia/Blood Transfusion Reactions: No Reported Reaction Smoking Status: Former smoker Medications and Allergies Home Medications Medication Instructions Recorded Confirmed Type ALPRAZolam [Xanax] 0.25 mg PO BID PRN 11/17/19 11/17/19 History Ciprofloxacin HCl [Cipro] 500 mg PO Q12HR 11/17/19 11/17/19 History Omeprazole Magnesium [PriLOSEC OTC] 20 mg PO HS 11/17/19 11/17/19 History Tamsulosin [Flomax] 0.4 mg PO HS 11/17/19 11/17/19 History predniSONE 10 mg PO DAILY 11/17/19 11/17/19 History Allergies Allergy/AdvReac Type Severity Reaction Status Date / Time No Known Allergies Allergy Verified 11/17/19 14:59 Physical Exam Vitals: Vital Signs Temp Pulse Pulse Resp BP BP Pulse Ox 11/18/19 11:46 91 L 11/18/19 09:02 23 11/18/19 08:46 97.5 F L 101 H 23 101/69 91 L 11/18/19 07:56 90 L 11/18/19 03:40 97.7 F 83 24 110/67 98 11/18/19 00:00 98.4 F 94 24 100/64 94 L 11/17/19 21:53 95 11/17/19 20:00 98.0 F 101 H 26 H 102/69 89 L 11/17/19 19:16 89 L 11/17/19 19:00 102 H 28 H 122/71 87 L 11/17/19 18:28 96 20 97/69 93 L 11/17/19 17:41 97.5 F L 98 22 104/74 90 L 11/17/19 16:46 104 H 22 102/70 91 L 11/17/19 15:54 84 L 11/17/19 14:51 101 H 20 110/74 92 L 11/17/19 13:59 22 11/17/19 13:48 105 H 89 L 11/17/19 13:45 107 H 20 116/73 74 L Intake and Output 11/17/19 11/18/19 11/18/19 22:59 06:59 14:59 Output Total 200 300 Balance -200 -300 Output: Urine 200 300 Other: Voiding Method Urinal Urinal Urinal # Voids 1 1 Weight 83.915 kg 81 kg Physical Exam: Revealed a 74-year-old white male, extremely pleasant, on high flow oxygen, in no distress. Head: Atraumatic, normocephalic. HEENT:[Neck is supple.] [No neck masses.] [No thyromegaly.] [No JVD.] Chest: [Velcro rales and crackles at the bases bilaterally, symmetrical chest expansion. No chest wall tenderness..] Cardiac Exam: [Normal S1 and S2, no S3 gallop, no murmur.] Abdomen: [Soft, nontender, no megaly, no rebound, no guarding, normal bowel sounds.] Extremities: Positive clubbing, no edema, no cyanosis.] Neurological Exam: [No focal neurologic deficit.] Alert and oriented 3. Psychiatric: Normal mood, affect and normal mental status examination. Skin: No rashes. Results - Laboratory Findings CBC and BMP: 11/18/19 07:02 11/18/19 07:02 PT/INR, D-dimer PT 11.0 sec (9.0-12.0) 11/17/19 14:09 INR 1.1 (<1.2) 11/17/19 14:09 Abnormal lab findings: Abnormal Labs 11/17/19 11/17/19 11/17/19 14:09 14:09 14:09 WBC 12.9 H RDW 16.0 H Neutrophils # 11.2 H Lymphocytes # 0.9 L Sodium 131 L Chloride 94 L Creatinine 0.50 L Glucose 192 H POC Glucose (mg/dL) Total Bilirubin 2.0 H Alkaline Phosphatase 136 H Creatine Kinase CK-MB (CK-2) Troponin I 0.413 H* Albumin 3.3 L Urine Protein Urine Blood Urine RBC Urine Mucus 11/17/19 11/17/19 11/17/19 14:09 16:43 17:17 WBC RDW Neutrophils # Lymphocytes # Sodium Chloride Creatinine Glucose POC Glucose (mg/dL) Total Bilirubin Alkaline Phosphatase Creatine Kinase 22 L CK-MB (CK-2) 3.1 H Troponin I 0.565 H* Albumin Urine Protein Trace H Urine Blood Small H Urine RBC 28 H Urine Mucus Moderate H 11/17/19 11/17/19 11/18/19 20:01 20:32 00:36 WBC RDW Neutrophils # Lymphocytes # Sodium Chloride Creatinine Glucose POC Glucose (mg/dL) 161 H 299 H Total Bilirubin Alkaline Phosphatase Creatine Kinase CK-MB (CK-2) Troponin I 0.712 H* Albumin Urine Protein Urine Blood Urine RBC Urine Mucus 11/18/19 11/18/19 11/18/19 06:08 07:02 07:02 WBC RDW 15.9 H Neutrophils # Lymphocytes # Sodium 135 L Chloride Creatinine 0.48 L Glucose 215 H POC Glucose (mg/dL) 232 H Total Bilirubin Alkaline Phosphatase Creatine Kinase CK-MB (CK-2) Troponin I Albumin Urine Protein Urine Blood Urine RBC Urine Mucus 11/18/19 11:23 WBC RDW Neutrophils # Lymphocytes # Sodium Chloride Creatinine Glucose POC Glucose (mg/dL) 227 H Total Bilirubin Alkaline Phosphatase Creatine Kinase CK-MB (CK-2) Troponin I Albumin Urine Protein Urine Blood Urine RBC Urine Mucus - Diagnostic Findings CT scan - chest: image reviewed (As noted in HPI.) Assessment and Plan Assessment: Impression: Acute on chronic hypoxic respiratory failure secondary to acute exacerbation of interstitial lung disease/idiopathic pulmonary fibrosis/usual interstitial pneumonitis. Non-ST elevation myocardial infarction is strongly suspected. Suspect diastolic congestive heart failure, and I agree with Lasix. Nonobstructive nephrolithiasis. History of GERD without esophagitis. Recommendation: Continue oxygen at high flow. Continue IV Solu-Medrol. Continue diuretics. Continue bronchodilators. Added antibiotics in the form of doxycycline twice a day. Resume home meds. Repeat chest x-ray in the next 24 hours. Continue diuretics for now. We'll continue to follow. Time with Patient: Greater than 30
[2019-11-18] MEDS: ISOSORBIDE MONONITRATE ER 15 MG TAB PO SCH (13:01)
--- NOTE | 2019-11-18 13:35 | P.PN ---
Subjective Progress Note Date: 11/18/19 Principal diagnosis: Patient is a pleasant 74-year-old male with known history of pulmonary fibrosis exists 5 L of oxygen at home came in with complaints of shortness of breath den ied any fever chills chest x-ray did not show pneumonia. Patient denied any orthopnea proximal nocturnal dyspnea. Patient denied any chest pain. Patient does have mildly elevated troponin of 0.[address]-T wave changes in the EKG. Patient denied any fever chills or significant cough. Patient is presently on Ventimask. Patient is bit hyponatremic chest x-ray looks like pulmonary congestion but mostly probably pulmonary fibrosis. Patient does have significant crackles bilaterally no wheezing and exam patient does have mildly elevated BNP of 2000 along with mildly elevated troponin of 0.413 patient although doesn't have any JVD or pedal edema on exam. Patient is complaining of hematuria patient has 28 white blood cell count in the urine and non-obstructive nephrolithiasis on the CAT scan of the abdomen and also diverticulosis. 11/18/2019 Patient is seen and evaluated in follow-up and continues to be extremely dyspneic with minimal exertion. Pulmonary and cardiology are following as well. Patient currently remains on IV steroids along with breathing treatments and has been placed on an airvo. An echo was ordered and is currently pending. Patient is also on oral antibiotics in the form of doxycycline and will continue at this time. Review of systems: Constitutional: Reports generalized fatigue, no reports of fever or chills Cardiovascular: No reports of chest pain or palpitations Respiratory: Reports severe shortness of breath and occasional cough GI: No reports of dysuria or retention : No reports of nausea, vomiting, or diarrhea Neurovascular: Reports generalized weakness, no reports of numbness Active Medications Albuterol Sulfate (Ventolin Nebulized) 2.5 mg INHALATION RT-QID [facility] Last Admin: 11/18/19 11:44 Dose: Not Given Documented by: Albuterol/Ipratropium (Duoneb 0.5 Mg-3 Mg/3 Ml Soln) 3 ml INHALATION RT-Q4H PRN PRN Reason: Shortness Of Breath Or Wheezing Alprazolam (Xanax) 0.25 mg PO Q6H PRN PRN Reason: Anxiety Doxycycline Monohydrate (Vibramycin) 100 mg PO BID [facility] Last Admin: 11/18/19 10:46 Dose: 100 mg Documented by: Enoxaparin Sodium (Lovenox) 40 mg SQ DAILY [facility] Last Admin: 11/18/19 08:48 Dose: 40 mg Documented by: Famotidine (Pepcid) 20 mg PO BID [facility] Last Admin: 11/18/19 08:48 Dose: 20 mg Documented by: Furosemide (Lasix) 20 mg IV Q12HR [facility] Sodium Chloride (Saline 0.9%) 1,000 mls @ 25 mls/hr IV .Q24H [facility] Last Admin: 11/18/19 10:39 Dose: Not Given Documented by: Insulin Aspart (Novolog) 0 unit SQ ACHS [facility]; Protocol Last Admin: 11/18/19 12:42 Dose: 7 unit Documented by: Isosorbide Mononitrate (Imdur) 15 mg PO DAILY [facility] Last Admin: 11/18/19 13:01 Dose: 15 mg Documented by: Methylprednisolone Sodium Succinate (Solu-Medrol) 40 mg IV Q8HR [facility] Last Admin: 11/18/19 08:48 Dose: 40 mg Documented by: Tamsulosin HCl (Flomax) 0.4 mg PO HS [facility] Last Admin: 11/17/19 21:13 Dose: 0.4 mg Documented by: Objective - Vital Signs Vital signs: Vital Signs Temp 97.8 F 11/18/19 11:50 Pulse 104 H 11/18/19 11:50 Resp 24 11/18/19 11:50 BP 104/72 11/18/19 11:50 Pulse Ox 91 L 11/18/19 11:50 Intake & Output 11/17/19 11/18/19 11/18/19 18:59 06:59 18:59 Output Total 500 Balance -500 Weight 83.915 kg 81 kg Output: Urine 500 Other: Voiding Method Urinal Urinal # Voids 1 - Exam GENERAL: The patient is alert and oriented x3, Well developed, well nourished. Temp is 97.5F, pulse is 101, respirations are 23, blood pressure is 101/69, oxygen saturation is 91% on high flow airvo. HEENT: Pupils are round and equally reacting to light. EOMI. No scleral icterus. No conjunctival pallor. Normocephalic, atraumatic. No pharyngeal erythema. No thyromegaly. Airvo noted CARDIOVASCULAR: S1 and S2 present. No murmurs, rubs, or gallops. PULMONARY: Diffuse bilateral crackles and rhonchi noted on exam. ABDOMEN: Soft, nontender, nondistended, normoactive bowel sounds. No palpable organomegaly. MUSCULOSKELETAL: No joint swelling or deformity. EXTREMITIES: No cyanosis, clubbing, or pedal edema. NEUROLOGICAL: Gross neurological examination did not reveal any focal deficits. SKIN: No rashes. - Labs CBC & Chem 7: 11/18/19 07:02 11/18/19 07:02 Labs: Abnormal Lab Results - Last 24 Hours (Table) 11/17/19 11/17/19 11/17/19 Range/Units 14:09 14:09 14:09 WBC 12.9 H (3.8-10.6) k/uL RDW 16.0 H (11.5-15.5) % Neutrophils # 11.2 H (1.3-7.7) k/uL Lymphocytes # 0.9 L (1.0-4.8) k/uL Sodium 131 L (137-145) mmol/L Chloride 94 L (98-107) mmol/L Creatinine 0.50 L (0.66-1.25) mg/dL Glucose 192 H (74-99) mg/dL POC Glucose (mg/dL) (75-99) mg/dL Total Bilirubin 2.0 H (0.2-1.3) mg/dL Alkaline Phosphatase 136 H (38-126) U/L Creatine Kinase (55-170) U/L CK-MB (CK-2) (0.0-2.4) ng/mL Troponin I 0.413 H* (0.000-0.034) ng/mL Albumin 3.3 L (3.5-5.0) g/dL Urine Protein (Negative) Urine Blood (Negative) Urine RBC (0-5) /hpf Urine Mucus (None) /hpf 11/17/19 11/17/19 11/17/19 Range/Units 14:09 16:43 17:17 WBC (3.8-10.6) k/uL RDW (11.5-15.5) % Neutrophils # (1.3-7.7) k/uL Lymphocytes # (1.0-4.8) k/uL Sodium (137-145) mmol/L Chloride (98-107) mmol/L Creatinine (0.66-1.25) mg/dL Glucose (74-99) mg/dL POC Glucose (mg/dL) (75-99) mg/dL Total Bilirubin (0.2-1.3) mg/dL Alkaline Phosphatase (38-126) U/L Creatine Kinase 22 L (55-170) U/L CK-MB (CK-2) 3.1 H (0.0-2.4) ng/mL Troponin I 0.565 H* (0.000-0.034) ng/mL Albumin (3.5-5.0) g/dL Urine Protein Trace H (Negative) Urine Blood Small H (Negative) Urine RBC 28 H (0-5) /hpf Urine Mucus Moderate H (None) /hpf 11/17/19 11/17/19 11/18/19 Range/Units 20:01 20:32 00:36 WBC (3.8-10.6) k/uL RDW (11.5-15.5) % Neutrophils # (1.3-7.7) k/uL Lymphocytes # (1.0-4.8) k/uL Sodium (137-145) mmol/L Chloride (98-107) mmol/L Creatinine (0.66-1.25) mg/dL Glucose (74-99) mg/dL POC Glucose (mg/dL) 161 H 299 H (75-99) mg/dL Total Bilirubin (0.2-1.3) mg/dL Alkaline Phosphatase (38-126) U/L Creatine Kinase (55-170) U/L CK-MB (CK-2) (0.0-2.4) ng/mL Troponin I 0.712 H* (0.000-0.034) ng/mL Albumin (3.5-5.0) g/dL Urine Protein (Negative) Urine Blood (Negative) Urine RBC (0-5) /hpf Urine Mucus (None) /hpf 11/18/19 11/18/19 11/18/19 Range/Units 06:08 07:02 07:02 WBC (3.8-10.6) k/uL RDW 15.9 H (11.5-15.5) % Neutrophils # (1.3-7.7) k/uL Lymphocytes # (1.0-4.8) k/uL Sodium 135 L (137-145) mmol/L Chloride (98-107) mmol/L Creatinine 0.48 L (0.66-1.25) mg/dL Glucose 215 H (74-99) mg/dL POC Glucose (mg/dL) 232 H (75-99) mg/dL Total Bilirubin (0.2-1.3) mg/dL Alkaline Phosphatase (38-126) U/L Creatine Kinase (55-170) U/L CK-MB (CK-2) (0.0-2.4) ng/mL Troponin I (0.000-0.034) ng/mL Albumin (3.5-5.0) g/dL Urine Protein (Negative) Urine Blood (Negative) Urine RBC (0-5) /hpf Urine Mucus (None) /hpf 11/18/19 Range/Units 11:23 WBC (3.8-10.6) k/uL RDW (11.5-15.5) % Neutrophils # (1.3-7.7) k/uL Lymphocytes # (1.0-4.8) k/uL Sodium (137-145) mmol/L Chloride (98-107) mmol/L Creatinine (0.66-1.25) mg/dL Glucose (74-99) mg/dL POC Glucose (mg/dL) 227 H (75-99) mg/dL Total Bilirubin (0.2-1.3) mg/dL Alkaline Phosphatase (38-126) U/L Creatine Kinase (55-170) U/L CK-MB (CK-2) (0.0-2.4) ng/mL Troponin I (0.000-0.034) ng/mL Albumin (3.5-5.0) g/dL Urine Protein (Negative) Urine Blood (Negative) Urine RBC (0-5) /hpf Urine Mucus (None) /hpf Assessment and Plan Assessment: -Acute on chronic hypoxic respiratory failure: Probably secondary to flareup or exacerbation of pulmonary fibrosis -Hyponatremia appears to be mostly hypovolemic hyponatremia rather than hypervolemic hyponatremia, improving -Bilateral non-obstructive nephrolithiasis -Mildly elevated troponins, most probably suffered from hypoxemia although I cannot completely rule out non-ST elevation myocardial infarction -Leukocytosis reactive in nature -Tachycardia secondary to hypoxemia Recommendations and discussion: Recommend continue current medications, management, and symptomatic treatment. Patient is maintained on IV steroids along with breathing treatments and will continue at this time. Patient was also initiated on oral doxycycline and will continue. Pulmonary and cardiology following. Echo was ordered and currently pending at this time. Will start IV Lasix 20 mg twice daily. Patient continues to be dyspneic and is on an airvo with an O2 rate of 60% and FiO2 is 95. Blood sugars continue to be elevated and will continue sliding scale and treat accordingly. Will repeat am labs. Further recommendations to follow. Due to multiple complex medical issues, prognosis is guarded.
[2019-11-18 14:21] VITALS: BMI 26.4
[2019-11-18 16:39] LABS: Glucose,Whole Blood 234 mg/dL (75-99)
[2019-11-18 20:19] LABS: Glucose,Whole Blood 252 mg/dL (75-99)
[2019-11-18] MEDS: FUROSEMIDE 10 MG/ML 2 ML VIAL IV SCH (20:53)
[2019-11-18] MEDS: TAMSULOSIN 0.4 MG CAP.ER.24H PO SCH (20:53)
[2019-11-18] MEDS ORDERED: diphenhydrAMINE 25 MG CAP PO PRN (21:09)
[2019-11-19 06:19] LABS: Glucose,Whole Blood 195 mg/dL (75-99)
[2019-11-19] MEDS: INSULIN ASPART (NovoLOG) 100 UNIT/ML VIAL SQ SCH ×4 (06:31→21:09)
[2019-11-19 07:07] LABS: Basophils % (A) 0 %; Eosinophils % (A) 0 %; HCT 44.2 % (39.0-53.0); HGB 14.6 gm/dL (13.0-17.5); Lymphocytes # (A) 0.8 k/uL (1.0-4.8); Lymphocytes % (A) 6 %; MCH 29.8 pg (25.0-35.0); MCV 90.2 fL (80.0-100.0); Mean Platelet Volume 7.2; Monocytes # (A) 0.5 k/uL (0-1.0); Monocytes % (A) 3 %; Neutrophils # (A) 13.5 k/uL (1.3-7.7); Neutrophils % (A) 90 %; Platelet Count 265 k/uL (150-450); Poikilocytosis Slight; RDW 15.9 % (11.5-15.5)
[2019-11-19] MEDS: ALBUTEROL NEBULIZED 2.5 MG/3 ML INHALATION SCH ×4 (07:13→20:41)
[2019-11-19 07:16] LABS: African American GFR (CKD) >90 (>60 ml/min/1.73 sqM); Anion Gap 6 mmol/L; Blood Urea Nitrogen 22 mg/dL (9-20); Calcium 8.9 mg/dL (8.4-10.2); Carbon Dioxide 33 mmol/L (22-30); Chloride 96 mmol/L (98-107); Glucose 201 mg/dL (74-99); Non-African American GFR(CKD) >90 (>60 ml/min/1.73 sqM); Potassium 4.1 mmol/L (3.5-5.1); Sodium 135 mmol/L (137-145)
[2019-11-19] MEDS: methylPREDNISolone SOD SUCCI 40 MG/ML 1 ML VIAL IV SCH ×2 (08:49→17:51)
[2019-11-19] MEDS: ENOXAPARIN 40 MG/0.4 ML SYRINGE SQ SCH (08:50)
[2019-11-19] MEDS: FAMOTIDINE 20 MG TAB PO SCH ×2 (08:50→21:13)
[2019-11-19] MEDS: DOXYCYCLINE 100 MG CAP PO SCH ×2 (08:50→21:09)
[2019-11-19] MEDS: ISOSORBIDE MONONITRATE ER 15 MG TAB PO SCH (08:50)
[2019-11-19] MEDS: FUROSEMIDE 10 MG/ML 2 ML VIAL IV SCH (08:50)
--- NOTE | 2019-11-19 10:23 | P.PN ---
Subjective Progress Note Date: 11/19/19 his is a 74-year-old gentleman with severe COPD who is admitted to the hospital with increasing shortness of breath, felt to be secondary to exacerbation of COPD. His troponin values are abnormal and the possibility of non-STEMI cannot be excluded. Echocardiogram showed normal LV function without any definite wall motion abnormalities. I discussed with the patient, that we cannot exclude coronary artery disease, because the enzymes elevation is suggestive of non- STEMI. Patient was advised that cardiac catheterization may be necessary to assess and rule out underlying ischemic heart disease. Patient is not interested in having cardiac catheterization. He would like to continue medical therapy. We'll continue with nitrates and aspirin and possibly Plavix for about 3 months. The patient decides cardiac catheterization that could be considered. Meanwhile, continue the rest of the management. His BNP is also elevated. He was initiated on diuretics which to be continued. Objective - Vital Signs Vital signs: Vital Signs Temp 97.7 F 11/19/19 08:00 Pulse 102 H 11/19/19 08:00 Resp 22 11/19/19 08:00 BP 142/76 11/19/19 08:00 Pulse Ox 91 L 11/19/19 08:00 Intake & Output 11/18/19 11/19/19 11/19/19 18:59 06:59 18:59 Intake Total 180 Output Total 1025 Balance -1025 180 Weight 81 kg 77.5 kg Intake: Oral 180 Output: Urine 1025 Other: Voiding Method Urinal Urinal Urinal # Voids 1 1 # Bowel Movements 1 1 - Exam GENERAL EXAM: Patient is alert and oriented and doesn't appear to be in any acute distress HEENT: Normocephalic. Normal reaction of pupils, equal size, normal range of extraocular motion. No erythema or exudates in the throat. NECK: No masses, no nuchal rigidity. CHEST: No chest wall deformity. LUNGS: Diminished breath sounds with rhonchi HEART: S1 and S2 normal with no audible mumurs or gallops. Regular rhythm, femorals equal on both sides.. ABDOMEN: No hepatosplenomegaly, normal bowel sounds, no guarding or rigidity. SKIN: No rashes CENTRAL NERVOUS SYSTEM: No focal deficits. EXTREMITIES: No cyanosis, clubbing or edema. - Labs CBC & Chem 7: 11/19/19 06:31 11/19/19 06:31 Labs: Abnormal Lab Results - Last 24 Hours (Table) 11/18/19 11/18/19 11/18/19 Range/Units 11:23 16:36 20:17 WBC (3.8-10.6) k/uL RDW (11.5-15.5) % Neutrophils # (1.3-7.7) k/uL Lymphocytes # (1.0-4.8) k/uL Sodium (137-145) mmol/L Chloride (98-107) mmol/L Carbon Dioxide (22-30) mmol/L BUN (9-20) mg/dL Creatinine (0.66-1.25) mg/dL Glucose (74-99) mg/dL POC Glucose (mg/dL) 227 H 234 H 252 H (75-99) mg/dL 11/19/19 11/19/19 11/19/19 Range/Units 06:18 06:31 06:31 WBC 15.0 H (3.8-10.6) k/uL RDW 15.9 H (11.5-15.5) % Neutrophils # 13.5 H (1.3-7.7) k/uL Lymphocytes # 0.8 L (1.0-4.8) k/uL Sodium 135 L (137-145) mmol/L Chloride 96 L (98-107) mmol/L Carbon Dioxide 33 H (22-30) mmol/L BUN 22 H (9-20) mg/dL Creatinine 0.60 L (0.66-1.25) mg/dL Glucose 201 H (74-99) mg/dL POC Glucose (mg/dL) 195 H (75-99) mg/dL Assessment and Plan (1) Non-STEMI (non-ST elevated myocardial infarction) Current Visit: Yes Status: Acute Code(s): I21.4 - NON-ST ELEVATION (NSTEMI) MYOCARDIAL INFARCTION SNOMED Code(s): 80145531 (2) Acute exacerbation of chronic obstructive pulmonary disease Current Visit: Yes Status: Acute Code(s): J44.1 - CHRONIC OBSTRUCTIVE PULMONARY DISEASE W (ACUTE) EXACERBATION SNOMED Code(s): 863081591 (3) Congestive heart failure Current Visit: Yes Status: Acute Code(s): I50.9 - HEART FAILURE, UNSPECIFIED SNOMED Code(s): 17612372 Plan: Patient is feeling somewhat better. He is still short of breath. Echocardiogram showed normal LV function without any segmental wall motion defects. However underlying ischemic heart disease cannot be excluded. This and doesn't want to have any cardiac catheterization at this time. We'll continue to maximize medical therapy. Patient is also advised to discuss this with the primary care physician
[2019-11-19] MEDS ORDERED: LISINOPRIL 2.5 MG TAB PO STA (10:24)
[2019-11-19 11:49] LABS: Glucose,Whole Blood 285 mg/dL (75-99)
--- NOTE | 2019-11-19 13:38 | P.PN ---
Subjective Progress Note Date: 11/19/19 Principal diagnosis: Acute on chronic hypoxic respiratory failure secondary to worsening interstitial lung disease/UIP. This is a 74-year-old white male, familiar to my service, known history of idiopathic pulmonary fibrosis, been evaluated previously at the [facility], and I have been seeing this patient for the last 8 months. Patient has chronic hypoxic respiratory failure secondary to his underlying pulmonary fibrosis, has been treated recently with prednisone and I have tapered the prednisone down to 5 mg daily maintenance. Patient declined going on pirfe nedone in the past. Patient presented to the ER yesterday with worsening shortness of breath for the last few days, occasional cough, no wheezing, no fever, no chills, no hemoptysis. Patient states that his shortness of breath seems to be more pronounced since he went down from 10 mg to 5 mg of prednisone. Patient was also noted to have hematuria and CT of the abdomen and pelvis showed nonobstructing nephrolithiasis. Chest x-ray showed cardiomegaly and diffuse bilateral airspace disease, interstitial lung disease, possibility of underlying pulmonary edema is not entirely ruled out. Troponin was elevated, BNP was elevated. Patient was admitted, placed on bronchodilators, IV Solu-Medrol, and I recommended adding doxycycline. He was seen by cardiology, felt that the patient may have had non-ST elevation myocardial infarction and underlying component of congestive heart failure. Placed on Lasix at 20 mg IV push every 12 hours. He is also presently on high flow oxygen 80% FiO2 and 45 L/m flow via airvo Reevaluated today on 11/19/19, patient remains on high flow oxygen, clinically feeling a bit better, less shortness of breath, but his O2 saturation remains marginal on high flow and high FiO2 using airvo. Patient was seen by cardiology today, and he is being considered for cardiac catheterization for further evaluation of his suspected non-ST elevation myocardial infarction. WBC count today is 15.0 hemoglobin is 14.6, elected lites are normal. Objective - Vital Signs Vital signs: Vital Signs Temp 97.7 F 11/19/19 08:00 Pulse 102 H 11/19/19 08:00 Resp 22 11/19/19 08:00 BP 142/76 11/19/19 08:00 Pulse Ox 91 L 11/19/19 08:00 Intake & Output 11/18/19 11/19/19 11/19/19 18:59 06:59 18:59 Intake Total 580 Output Total 1025 Balance -1025 580 Weight 81 kg 77.5 kg Intake: Oral 580 Output: Urine 1025 Other: Voiding Method Urinal Urinal Urinal # Voids 1 1 # Bowel Movements 1 1 - Exam Physical Exam: Revealed a 74-year-old white male, extremely pleasant, on high flow oxygen, in no distress. Head: Atraumatic, normocephalic. HEENT:[Neck is supple.] [No neck masses.] [No thyromegaly.] [No JVD.] Chest: [Velcro rales and crackles at the bases bilaterally, symmetrical chest expansion. No chest wall tenderness..] Cardiac Exam: [Normal S1 and S2, no S3 gallop, no murmur.] Abdomen: [Soft, nontender, no megaly, no rebound, no guarding, normal bowel sounds.] Extremities: Positive clubbing, no edema, no cyanosis.] Neurological Exam: [No focal neurologic deficit.] Alert and oriented 3. Psychiatric: Normal mood, affect and normal mental status examination. Skin: No rashes. - Labs CBC & Chem 7: 11/19/19 06:31 11/19/19 06:31 Labs: Abnormal Lab Results - Last 24 Hours (Table) 11/18/19 11/18/19 11/19/19 Range/Units 16:36 20:17 06:18 WBC (3.8-10.6) k/uL RDW (11.5-15.5) % Neutrophils # (1.3-7.7) k/uL Lymphocytes # (1.0-4.8) k/uL Sodium (137-145) mmol/L Chloride (98-107) mmol/L Carbon Dioxide (22-30) mmol/L BUN (9-20) mg/dL Creatinine (0.66-1.25) mg/dL Glucose (74-99) mg/dL POC Glucose (mg/dL) 234 H 252 H 195 H (75-99) mg/dL 11/19/19 11/19/19 11/19/19 Range/Units 06:31 06:31 11:41 WBC 15.0 H (3.8-10.6) k/uL RDW 15.9 H (11.5-15.5) % Neutrophils # 13.5 H (1.3-7.7) k/uL Lymphocytes # 0.8 L (1.0-4.8) k/uL Sodium 135 L (137-145) mmol/L Chloride 96 L (98-107) mmol/L Carbon Dioxide 33 H (22-30) mmol/L BUN 22 H (9-20) mg/dL Creatinine 0.60 L (0.66-1.25) mg/dL Glucose 201 H (74-99) mg/dL POC Glucose (mg/dL) 285 H (75-99) mg/dL Assessment and Plan Assessment: Impression: Acute on chronic hypoxic respiratory failure secondary to acute exacerbation of interstitial lung disease/idiopathic pulmonary fibrosis/usual interstitial pneumonitis. Acute Non-ST elevation myocardial infarction is strongly suspected. Being considered for possible cardiac catheterization. Suspect diastolic congestive heart failure, and I agree with Lasix. Nonobstructive nephrolithiasis. History of GERD without esophagitis. Recommendation: Continue oxygen at high flow. Titrate accordingly. Continue IV Solu-Medrol. Continue diuretics. Continue bronchodilators. Added antibiotics in the form of doxycycline twice a day. Repeat chest x-ray in the next 24 hours. Not quite ready for discharge planning We'll continue to follow. Time with Patient: Less than 30
--- NOTE | 2019-11-19 16:16 | PN ---
PROGRESS NOTE DATE OF SERVICE: 11/19/2019 This 74-year-old gentleman who was admitted with COPD acute exacerbation also had hyponatremia. Patient also had elevated troponin indicative of possible acute non-ST- segment-elevation myocardial infarction. Cardiology has seen the patient and 2D echo showed normal LV function. The cardiac cath is being deferred at this time. Multiple consultants following the patient closely. Acute non ST elevation IN is being considered. Past medical history reviewed. REVIEW OF SYSTEMS: Cardiovascular: No angina or palpitations. Respiration as mentioned earlier. GI as mentioned. : No dysuria. NERVOUS SYSTEM: No numbness or weakness. Current medications reviewed and include: Ventolin 2.5 q.i.d. p.r.n., DuoNeb q.i.d. and p.r.n., Xanax 0.25 t.i.d., Aspirin, Benadryl, Vibramycin, Lovenox, Pepcid, Lasix, NovoLog, Imdur, Solu-Medrol, Flomax. PHYSICAL EXAMINATION: Patient is alert, oriented x3. The pulse is 112. Blood pressure 106/72, respiration 20, temperature 97.2, pulse ox 90% on FiO2 80% high-flow. HEENT: Conjunctivae normal. NECK: No JVD. CARDIOVASCULAR: S1, S2 muffled. RESPIRATORY SYSTEM: Breath sounds diminished at the bases. A few scattered rhonchi and crackles. Expiratory wheezing also present. ABDOMEN: Soft, nontender. LEGS are no edema. No swelling. NERVOUS SYSTEM: No focal deficits. LABS: WBC 15.8, hemoglobin 14.2, sodium 135, glucose noted. ASSESSMENT: 1. Chronic obstructive pulmonary disease exacerbation with acute on chronic hypoxic respiratory failure with acute purulent tracheobronchitis. 2. Possible acute [id number]-elevation myocardial infarction with elevated troponin. 3. Hyponatremia. 4. Bilateral nonobstructive nephrolithiasis. 5. Leukocytosis. 6. Tachycardia. 7. Hyponatremia. 8. History of diabetes type 2. 9. History of pulmonary fibrosis. 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 11.History of cholecystectomy. 12.Remote history of nicotine dependence. 13.FULL CODE with instructions. RECOMMENDATIONS AND DISCUSSION: This 74-year-old gentleman who presented with multiple complex medical issues, we will monitor the patient closely. Continue the current medications, and symptomatic treatment. We will continue PATRICE inhibitors. Continue with Lovenox. Continue the bronchodilators. Continue the antibiotics. Continue with high-flow oxygen. Closely follow with Dr. Akins. Guarded prognosis because of multiple complex medical issues. further recommendations to follow. The patient is on IV steroids as well. MMODL / IJN: [id number] /
[2019-11-19 16:38] LABS: Glucose,Whole Blood 163 mg/dL (75-99)
[2019-11-19 20:42] LABS: Glucose,Whole Blood 202 mg/dL (75-99)
[2019-11-19] MEDS: TAMSULOSIN 0.4 MG CAP.ER.24H PO SCH (21:08)
[2019-11-19] MEDS: ASPIRIN 81 MG PO SCH (21:09)
[2019-11-20] MEDS: methylPREDNISolone SOD SUCCI 40 MG/ML 1 ML VIAL IV SCH ×4 (00:17→23:24)
[2019-11-20] MEDS: SODIUM CHLORIDE 0.9% 1,000 ML IV SCH (03:12)
[2019-11-20 05:59] LABS: Glucose,Whole Blood 207 mg/dL (75-99)
[2019-11-20] MEDS: INSULIN ASPART (NovoLOG) 100 UNIT/ML VIAL SQ SCH ×4 (06:23→21:01)
[2019-11-20] MEDS: ENOXAPARIN 40 MG/0.4 ML SYRINGE SQ SCH (08:05)
[2019-11-20] MEDS: FAMOTIDINE 20 MG TAB PO SCH ×2 (08:05→21:00)
[2019-11-20] MEDS: FUROSEMIDE 20 MG TAB PO SCH (08:05)
[2019-11-20] MEDS: DOXYCYCLINE 100 MG CAP PO SCH ×2 (08:05→22:33)
[2019-11-20] MEDS: ISOSORBIDE MONONITRATE ER 15 MG TAB PO SCH (08:05)
[2019-11-20 08:21] LABS: Glucose,Whole Blood 200 mg/dL (75-99)
[2019-11-20] MEDS: ALBUTEROL NEBULIZED 2.5 MG/3 ML INHALATION SCH ×4 (08:37→19:48)
--- NOTE | 2019-11-20 08:38 | XR ---
EXAMINATION TYPE: XR chest 1V portable DATE OF EXAM: 11/20/2019 COMPARISON: 1720 HISTORY: Shortness of breath FINDINGS: There are bilateral pleural effusions with cardiomegaly and bibasilar infiltrate. There is a diffuse interstitial pattern. Small right effusion. No pneumothorax. Arthropathy of the shoulders and limite d inspiration. Atherosclerotic change aorta. IMPRESSION: 1. Bilateral pleural-parenchymal changes. Correlate for CHF or interstitial pneumonitis superimposed on a background of underlying chronic interstitial lung
[2019-11-20 10:25] LABS: Appearance,Urine Clear (Clear); Bacteria,Urine Rare /hpf; Bilirubin,Urine Negative (Negative); Blood,Urine Moderate (Negative); Color,Urine Yellow; Glucose,Urine (UA) Negative (Negative); Ketones,Urine Negative (Negative); Leukocyte Esterase,Urine Negative (Negative); Mucus,Urine Occasional /hpf; Nitrite,Urine Negative (Negative); PH, Urine 5.5 (5.0-8.0); Protein,Urine Trace (Negative); RBC,Urine 136 /hpf (0-5); Specific Gravity,Urine 1.025 (1.001-1.035); WBC,Urine 3 /hpf (0-5)
--- NOTE | 2019-11-20 10:30 | P.PN ---
Subjective Progress Note Date: 11/20/19 his is a 74-year-old gentleman with severe COPD who is admitted to the hospital with increasing shortness of breath, felt to be secondary to exacerbation of COPD. His troponin values are abnormal and the possibility of non-STEMI cannot be excluded. Echocardiogram showed normal LV function without any definite wall motion abnormalities. I discussed with the patient, that we cannot exclude coronary artery disease, because the enzymes elevation is suggestive of non- STEMI. Patient was advised that cardiac catheterization may be necessary to assess and rule out underlying ischemic heart disease. Patient is not interested in having cardiac catheterization. He would like to continue medical therapy. We'll continue with nitrates and aspirin and possibly Plavix for about 3 months. The patient decides cardiac catheterization that could be considered. Meanwhile, continue the rest of the management. His BNP is also elevated. He was initiated on diuretics which to be continued. 11/20/2019: Patient's pulmonary status might have improved a little bit. Still complaining of shortness of breath. No complaints of any chest pain. Chest x- ray shows bilateral infiltrates suggestive of either pneumonia or CHF on top of underlying lung disease. We'll discuss her again about a cardiac catheteri zation. Patient doesn't want to have a cardiac cath. We'll continue with current medical therapy with aspirin and isosorbide mononitrate. Patient is not a candidate for beta susana because of severe lung disease. His LV function by echo is normal. However, patient may have diastolic CHF. Patient is also on Lasix, which will be continued. Prognosis is guarded Objective - Vital Signs Vital signs: Vital Signs Temp 97.4 F L 11/20/19 08:04 Pulse 110 H 11/20/19 08:05 Resp 20 11/20/19 08:05 BP 111/64 11/20/19 08:04 Pulse Ox 91 L 11/20/19 08:04 Intake & Output 11/19/19 11/20/19 11/20/19 18:59 06:59 18:59 Intake Total 580 250 Output Total 600 600 100 Balance -20 -600 150 Weight 76.6 kg Intake: IV 10 Invasive Line 1 10 Oral 580 240 Output: Urine 600 600 100 Other: Voiding Method Urinal Urinal Urinal # Voids 1 1 1 # Bowel Movements 1 1 - Exam GENERAL EXAM: Patient is alert and oriented and doesn't appear to be in any acute distress HEENT: Normocephalic. Normal reaction of pupils, equal size, normal range of extraocular motion. No erythema or exudates in the throat. NECK: No masses, no nuchal rigidity. CHEST: No chest wall deformity. LUNGS: Diminished breath sounds with rhonchi HEART: S1 and S2 normal with no audible mumurs or gallops. Regular rhythm, femorals equal on both sides.. ABDOMEN: No hepatosplenomegaly, normal bowel sounds, no guarding or rigidity. SKIN: No rashes CENTRAL NERVOUS SYSTEM: No focal deficits. EXTREMITIES: No cyanosis, clubbing or edema. - Labs CBC & Chem 7: 11/19/19 06:31 11/19/19 06:31 Labs: Abnormal Lab Results - Last 24 Hours (Table) 11/19/19 11/19/19 11/19/19 Range/Units 11:41 16:25 20:40 POC Glucose (mg/dL) 285 H 163 H 202 H (75-99) mg/dL Urine Protein (Negative) Urine Blood (Negative) Urine RBC (0-5) /hpf Urine Bacteria (None) /hpf Urine Mucus (None) /hpf 11/20/19 11/20/19 11/20/19 Range/Units 05:58 08:20 09:44 POC Glucose (mg/dL) 207 H 200 H (75-99) mg/dL Urine Protein Trace H (Negative) Urine Blood Moderate H (Negative) Urine RBC 136 H (0-5) /hpf Urine Bacteria Rare H (None) /hpf Urine Mucus Occasional H (None) /hpf Assessment and Plan (1) Non-STEMI (non-ST elevated myocardial infarction) Current Visit: Yes Status: Acute Code(s): I21.4 - NON-ST ELEVATION (NSTEMI) MYOCARDIAL INFARCTION SNOMED Code(s): 90925166 (2) Acute exacerbation of chronic obstructive pulmonary disease Current Visit: Yes Status: Acute Code(s): J44.1 - CHRONIC OBSTRUCTIVE PULMONARY DISEASE W (ACUTE) EXACERBATION SNOMED Code(s): 068601922 (3) Congestive heart failure Current Visit: Yes Status: Acute Code(s): I50.9 - HEART FAILURE, UNSPECIFIED SNOMED Code(s): 30383838 Plan: Patient's clinical status didn't improve. His urine output is good. Denies any chest pain. Doesn't want to go through cardiac catheterization. We'll continue current medical therapy. Prognosis guarded
[2019-11-20 11:47] LABS: Glucose,Whole Blood 208 mg/dL (75-99)
--- NOTE | 2019-11-20 13:45 | P.PN ---
Subjective Progress Note Date: 11/20/19 Principal diagnosis: Acute on chronic hypoxic respiratory failure secondary to worsening interstitial lung disease/UIP This is a 74-year-old white male, familiar to my service, known history of idiopathic pulmonary fibrosis, been evaluated previously at the [facility], and I have been seeing this patient for the last 8 months. Patient has chronic hypoxic respiratory failure secondary to his underlying pulmonary fibrosis, has been treated recently with prednisone and I have tapered the prednisone down to 5 mg daily maintenance. Patient declined going on pirfen edone in the past. Patient presented to the ER yesterday with worsening shortness of breath for the last few days, occasional cough, no wheezing, no fever, no chills, no hemoptysis. Patient states that his shortness of breath seems to be more pronounced since he went down from 10 mg to 5 mg of prednisone. Patient was also noted to have hematuria and CT of the abdomen and pelvis showed nonobstructing nephrolithiasis. Chest x-ray showed cardiomegaly and diffuse bilateral airspace disease, interstitial lung disease, possibility of underlying pulmonary edema is not entirely ruled out. Troponin was elevated, BNP was elevated. Patient was admitted, placed on bronchodilators, IV Solu- Medrol, and I recommended adding doxycycline. He was seen by cardiology, felt that the patient may have had non-ST elevation myocardial infarction and underlying component of congestive heart failure. Placed on Lasix at 20 mg IV push every 12 hours. He is also presently on high flow oxygen 80% FiO2 and 45 L/m flow via airvo Reevaluated today on 11/19/19, patient remains on high flow oxygen, clinically f eeling a bit better, less shortness of breath, but his O2 saturation remains marginal on high flow and high FiO2 using airvo. Patient was seen by cardiology today, and he is being considered for cardiac catheterization for further evaluation of his suspected non-ST elevation myocardial infarction. WBC count today is 15.0 hemoglobin is 14.6, elected lites are normal. The patient is seen today 11/20/2019 in follow-up on the selective care unit. He is currently awake and alert in no acute distress. He is still quite dyspneic with conversation and minimal exertion. He is still requiring AirVo at 80% FiO2 and 60 L. Some slight improvement today compared to yesterday. He remains on bronchodilators, IV Solu-Medrol, empiric antibiotics in the form of Vibramycin. Objective - Vital Signs Vital signs: Vital Signs Temp 97.6 F 11/20/19 11:22 Pulse 117 H 11/20/19 11:22 Resp 20 11/20/19 11:23 BP 101/70 11/20/19 11:22 Pulse Ox 90 L 11/20/19 11:22 Intake & Output 11/19/19 11/20/19 11/20/19 18:59 06:59 18:59 Intake Total 580 560 Output Total 600 600 100 Balance -20 -600 460 Weight 76.6 kg Intake: IV 20 Invasive Line 1 20 Oral 580 540 Output: Urine 600 600 100 Other: Voiding Method Urinal Urinal Urinal # Voids 1 1 1 # Bowel Movements 1 1 - Exam GENERAL EXAM: Alert, very pleasant 74-year-old gentleman, on AirVo 80% FiO2 and 60 L, comfortable in no apparent distress. HEAD: Normocephalic. EYES: Normal reaction of pupils, equal size. NOSE: Clear with pink turbinates. THROAT: No erythema or exudates. NECK: No masses, no JVD. CHEST: No chest wall deformity. LUNGS: Equal air entry with coarse crackles in the bilateral bases. CVS: S1 and S2 normal with no audible murmur, regular rhythm. ABDOMEN: No hepatosplenomegaly, normal bowel sounds, no guarding or rigidity. SPINE: No scoliosis or deformity SKIN: No rashes CENTRAL NERVOUS SYSTEM: No focal deficits, tone is normal in all 4 extremities. EXTREMITIES: There is no peripheral edema. No clubbing, no cyanosis. Peripheral pulses are intact. - Labs CBC & Chem 7: 11/19/19 06:31 11/19/19 06:31 Labs: Abnormal Lab Results - Last 24 Hours (Table) 11/19/19 11/19/19 11/20/19 Range/Units 16:25 20:40 05:58 POC Glucose (mg/dL) 163 H 202 H 207 H (75-99) mg/dL Urine Protein (Negative) Urine Blood (Negative) Urine RBC (0-5) /hpf Urine Bacteria (None) /hpf Urine Mucus (None) /hpf 11/20/19 11/20/19 11/20/19 Range/Units 08:20 09:44 11:45 POC Glucose (mg/dL) 200 H 208 H (75-99) mg/dL Urine Protein Trace H (Negative) Urine Blood Moderate H (Negative) Urine RBC 136 H (0-5) /hpf Urine Bacteria Rare H (None) /hpf Urine Mucus Occasional H (None) /hpf Assessment and Plan Assessment: Acute on chronic hypoxic respiratory failure secondary to acute exacerbation of interstitial lung disease/idiopathic pulmonary fibrosis/usual interstitial pneumonitis. Acute Non-ST elevation myocardial infarction is strongly suspected. Being consi dered for possible cardiac catheterization. Suspect diastolic congestive heart failure, and I agree with Lasix. Nonobstructive nephrolithiasis. History of GERD without esophagitis. Plan: The patient was seen and evaluated by Dr. Akins Chest x-ray slightly improved compared to admission x-ray Continue bronchodilators and steroids Continue diuretics Cardiac catheterization recommended however the patient's pulmonary status is borderline Dr. Akins spoke with the patient and his daughter at length today Heart cath and stenting would be possible however the patient would not be a surgical candidate They verbalize understanding and will make decisions tomorrow in this regard We will continue to follow and make further recommendations based on his clinical status I, the cosigning physician, performed a history & physical examination of the patient. Lungs sounds are coarse crackles in the bilateral bases. Maintaining good O2 saturations in the 90s on 80% FiO2 and 60 L on AirVo. I discussed the assessment and plan of care with my nurse practitioner, Ramonita Garrison. I attest to the above note as dictated by her.
[2019-11-20 16:44] LABS: Glucose,Whole Blood 199 mg/dL (75-99)
[2019-11-20 20:36] LABS: Glucose,Whole Blood 233 mg/dL (75-99)
[2019-11-20] MEDS: ASPIRIN 81 MG PO SCH (21:00)
[2019-11-20] MEDS: ALPRAZolam 0.25 MG TAB PO PRN (21:05)
[2019-11-20] MEDS: TAMSULOSIN 0.4 MG CAP.ER.24H PO SCH (21:05)
--- NOTE | 2019-11-21 03:42 | PN ---
PROGRESS NOTE DATE OF SERVICE: 11/20/2019 This 74-year-old gentleman who was admitted with COPD acute exacerbation also had possible acute sry-TZ-wampxtw-elevation myocardial infarction. The most recent chest x- ray which was done today showed some evidence of CHF also. The patient is being closely monitored at this time. PAST MEDICAL HISTORY: Reviewed. REVIEW OF SYSTEMS: CARDIOVASCULAR SYSTEM: No angina. RESPIRATORY SYSTEM: As mentioned earlier. GI: No nausea. : No dysuria. NERVOUS SYSTEM: neg. CURRENT MEDICATIONS: Current medications are reviewed and include: 1. Ventolin 2.5 q.i.d. 2. DuoNeb. 3. Xanax. 4. Aspirin. 5. Benadryl. 6. Vibramycin. 7. Lovenox. 8. Lasix. 9. Pepcid. 10.NovoLog. 11.Imdur. 12.Solu-Medrol. 13.Flomax. PHYSICAL EXAMINATION: The patient is alert and oriented x3. Pulse is 107 blood pressure 117/71, respiration 20, temperature 97.6, pulse ox 92% on high-flow oxygen. HEENT: Conjunctivae normal. NECK: No jugular venous distention. CARDIOVASCULAR: S1, S2 muffled. RESPIRATORY: Breath sounds diminished at the bases. Bilateral scattered rhonchi and crackles. ABDOMEN: Soft, nontender. LEGS: No edema, no swelling. NERVOUS SYSTEM: Diffusely weak. LABS: Accu-Cheks 208, 199. WBC 15. Sodium 135. ASSESSMENT: 1. Chronic obstructive pulmonary disease acute exacerbation with acute on chronic hypoxic respiratory failure with acute purulent tracheobronchitis. 2. Possible acute voc-NC-jdonjjq elevation myocardial infarction with elevated troponin. 3. Possible congestive heart failure acute exacerbation with ejection fraction unknown. 4. Hyponatremia. 5. Bilateral nonobstructive nephrolithiasis. 6. Leukocytosis. 7. Tachycardia. 8. History of diabetes mellitus type 2. 9. History of pulmonary fibrosis. 10.History of steroid induced diabetes mellitus type 2. 11.History of cholecystectomy. 12.Remote history of nicotine dependence. 13.FULL CODE with instructions. RECOMMENDATIONS AND DISCUSSION: I recommend to continue current medications, continue with monitoring and symptomatic treatment. Otherwise at this time closely follow with Cardiology and Pulmonology. Two- D echo with Doppler has been ordered. Report is awaited. Otherwise, continue the rest of medications. Cardiology is planning medical treatment at this time. Cardiac catheterization also being considered. Guarded prognosis. Further recommendations to follow. MMODL / IJN: [id number] / JOSI
[2019-11-21 05:42] LABS: Glucose,Whole Blood 198 mg/dL (75-99)
[2019-11-21] MEDS: SODIUM CHLORIDE 0.9% 1,000 ML IV SCH ×2 (05:57→06:00)
[2019-11-21] MEDS: INSULIN ASPART (NovoLOG) 100 UNIT/ML VIAL SQ SCH ×2 (06:04→11:42)
[2019-11-21] MEDS: ALBUTEROL NEBULIZED 2.5 MG/3 ML INHALATION SCH ×2 (07:21→11:41)
[2019-11-21 08:59] VITALS: RESP 20
[2019-11-21] MEDS: DOXYCYCLINE 100 MG CAP PO SCH (09:02)
[2019-11-21] MEDS: FUROSEMIDE 20 MG TAB PO SCH (09:02)
[2019-11-21] MEDS: ENOXAPARIN 40 MG/0.4 ML SYRINGE SQ SCH (09:02)
[2019-11-21] MEDS: methylPREDNISolone SOD SUCCI 40 MG/ML 1 ML VIAL IV SCH (09:02)
[2019-11-21] MEDS: ISOSORBIDE MONONITRATE ER 15 MG TAB PO SCH (09:02)
[2019-11-21] MEDS: FAMOTIDINE 20 MG TAB PO SCH (09:02)
[2019-11-21] MEDS: ALPRAZolam 0.25 MG TAB PO PRN (09:12)
[2019-11-21 11:30] LABS: Glucose,Whole Blood 200 mg/dL (75-99)
[2019-11-21 13:06] VITALS: BP 90/69; PULSE 113; TEMP 98.6
--- NOTE | 2019-11-21 14:27 | P.DS ---
Providers Date of admission: 11/17/19 16:55 Expected date of discharge: 11/21/19 Attending physician: Loni Crouch Consults: 11/17/19 16:55 Consult Physician Routine Consulting Provider: Juan Akins Consult Reason/Comments: knwn Do you want consulting provider notified?: Yes Consult Physician Routine Consulting Provider: Yasemin Odonnell Consult Reason/Comments: chf Do you want consulting provider notified?: Yes Primary care physician: Savanna Magana Hospital Course: Final diagnosis Chronic obstructive pulmonary disease, acute exacerbation with acute on chronic hypoxic respiratory failure with acute purulent tracheobronchitis Possible acute non-ST segment elevation myocardial infarction with elevated troponin Possible congestive heart failure acute exacerbation with ejection fraction unknown Hyponatremia Bilateral nonobstructive nephrolithiasis Leukocytosis Tachycardia [place] history of diabetes mellitus type 2 History of pulmonary fibrosis History of steroid-induced diabetes mellitus type 2 and signed history of cholecystectomy Remote history of nicotine dependence No code, no CPR, no vent Discharge disposition Patient is being transferred to [facility] with [facility] with an extremely guarded prognosis. Patient will continue with [facility] comfort care measures only. Total time taken is greater than 35 minutes. History of present illness This is a 74-year-old male who was recently admitted with COPD acute exacerbation also had possible acute non-ST segment elevation myocardial infarction and was being closely monitored. Cardiology and pulmonary following closely. Patient's most recent chest x-ray shows some evidence of CHF. Patient continues to remain on an airvo high flow oxygen with not much clinical improvement. Patient and family requesting consultation with hospice. [facility] met with family and patient today and they would like to proceed with hospice comfort care measures only. Per nursing staff of [facility] a lengthy discussion was had with the family about weaning the patient off of the airvo monitoring closely this evening and if patient tolerates and can handle the transfer to home he will be discharged home with hospice tomorrow. Family would like him to go home with hospice comfort measures only. Family and patient are agreeable at this time with the treatment plan. Currently patient has no reports of chest pain or palpitations. Patient continues to be extremely dyspneic with exertion. Patient is afebrile. No reports of nausea or vomiting patient is tolerating diet. On exam vital signs are stable. Temp is 98.6F, pulse is 113, respirations are 20, blood pressure is 90/69, oxygen saturation is 91% on high flow airvo with an O2 flow rate of 60% and FiO2 of 87. Cardio S1, S2 are muffled. Respiratory system shows diminished breath sounds at the bases with scattered crackles and rhonchi noted. Abdomen is soft and nontender. Nervous system shows diffuse weakness. Please refer to medication reconciliation sheet for a list of medications. Patient Condition at Discharge: Serious Plan - Discharge Summary Discharge Rx Participant: No New Discharge Prescriptions: No Action ALPRAZolam [Xanax] 0.25 mg PO BID PRN PRN Reason: Anxiety predniSONE 10 mg PO DAILY Tamsulosin [Flomax] 0.4 mg PO HS Ciprofloxacin HCl [Cipro] 500 mg PO Q12HR Omeprazole Magnesium [PriLOSEC OTC] 20 mg PO HS Discharge Medication List ALPRAZolam [Xanax] 0.25 mg PO BID PRN 11/17/19 [History] Ciprofloxacin HCl [Cipro] 500 mg PO Q12HR 11/17/19 [History] Omeprazole Magnesium [PriLOSEC OTC] 20 mg PO HS 11/17/19 [History] Tamsulosin [Flomax] 0.4 mg PO HS 11/17/19 [History] predniSONE 10 mg PO DAILY 11/17/19 [History] Follow up Appointment(s)/Referral(s): Savanna Magana MD [Primary Care Provider] - 1-2 days
--- NOTE | 2019-11-21 17:25 | PN ---
PROGRESS NOTE PULMONARY/CRITICAL CARE PROGRESS NOTE: DATE OF SERVICE: 11/21/2019 This patient is a 74-year-old male with a history of acute on chronic hypoxemic respiratory failure secondary to an exacerbation of his underlying severe pulmonary fibrosis. I had a very nice long talk with him and his daughters. Both Aleah and Alysa were at the bedside. The patient wants to be discharged home with hospice or palliative care. The patient is currently on AIRVO. His AIRVO requirements are quite elevated. I told him that he could be discharged home on nasal oxygen. I said that even if his saturations are low, he may not feel any more dyspneic or short of breath. He also was admitted with an acute nqe-TV-slpohly-elevation myocardial infarction. He has diastolic CHF, nonobstructive kidney stone, and GERD without esophagitis. Again, the patient was very content with the fact that he knew that his lungs were bad. He apparently had [facility] and [facility] The patient is more than willing to go to hospice. His daughters are in agreement. Again, I spoke to both of them at the bedside. PHYSICAL EXAMINATION: VITAL SIGNS: Current vital signs are reviewed. Temperature is 98.6, heart rate 113, respiratory rate 20, blood pressure 90/69, mean 76. Saturations are 91%. GENERAL APPEARANCE: He appears mildly tachypneic and dyspneic. HEENT: Examination is grossly unremarkable. AIRVO cannula in place. NECK: Supple. Full range of motion. No adenopathy. Neck veins are flat. CARDIOVASCULAR: Examination reveals regular rhythm and rate. Heart rate about 113 beats per minute. Heart sounds are distant. LUNGS: Lungs reveal bibasilar crackles. They are Velcro in nature. No rhonchi. No wheezes. Breath sounds are equal but diminished throughout. ABDOMEN: Soft. Bowel sounds are heard. EXTREMITIES: Intact. No cyanosis, clubbing or edema. SKIN: Without rash. NEUROLOGIC: Neurologic examination is nonfocal. LABS: Reviewed. Nothing to report from today. Microbiology is negative. Chest x-ray from November 19 is reviewed. Medications are reviewed. ASSESSMENT: 1. Severe hypoxemic respiratory failure secondary to severe pulmonary fibrosis/usual interstitial pneumonia. 2. Acute aga-PC-samxehq-elevation myocardial infarction. 3. Diastolic congestive heart failure. 4. Nonobstructive kidney stones. 5. History of gastroesophageal reflux disease without esophagitis. PLAN: The patient is clear about the fact that he wants to go home with hospice. I cannot argue with him. We will send him home on nasal oxygen, maybe at 6 L. His saturations will likely be very low. His daughters are in agreement with that. He is going to be living with one daughter named Aleah, who lives out in [place], which is close to [place]. He will need a hospital bed, bedside commode and shower chair. Additional recommendations and suggestions are forthcoming. Prognosis is poor. MMODL / IJN: [id number] /
--- NOTE | 2019-11-23 16:01 | ECHOF ---
Referral Reason:chf MEASUREMENTS -------- HEIGHT: 175.3 cm WEIGHT: 80.7 kg BP: 110/67 RVIDd: 4.3 cm (< 3.3) IVSd: 1.1 cm (0.6 - 1.1) LVIDd: 4.5 cm (3.9 - 5.3) LVPWd: 1.1 cm (0.6 - 1.1) IVSs: 1.5 cm LVIDs: 2.7 cm LVPWs: 1.6 cm LA Diam: 3.9 cm (2.7 - 3.8) LAESV Index (A-L): 24.86 ml/m Ao Diam: 3.3 cm (2.0 - 3.7) AV Cusp: 2.1 cm (1.5 - 2.6) MV EXCURSION: 17.007 mm (> 18.000) MV EF SLOPE: 131 mm/s (70 - 150) EPSS: 0.7 cm MV E Kj: 0.55 m/s MV DecT: 171 ms MV A Kj: 1.07 m/s MV E/A Ratio: 0.51 RAP: 5.00 mmHg RVSP: 48.45 mmHg FINDINGS -------- This was a technically adequate study. The left ventricular size is normal. There is borderline concentric left ventricular hypertrophy. Overall left ventricular systolic function is normal with, an EF between 55 - 60 %. The right ventricle is severely enlarged. Normal LA size by volume 22+/-6 ml/m2. The right atrium is normal in size. Aneurysmal Interatrial septum. The aortic valve is trileaflet and appears structurally normal. The mitral valve leaflets are mildly thickened. Mild mitral annular calcification present. Mild m itral regurgitation is present. Mild tricuspid regurgitation present. There is moderate pulmonary hypertension. The right ventric ular systolic pressure, as measured by Doppler, is 48.45mmHg. Trace/mild (physiologic) pulmonic regurgitation. The aortic root size is normal. IVC Not well visulized. There is no pericardial effusion. CONCLUSIONS -------- 1. This was a technically adequate study. 2. The left ventricular size is normal. 3. There is borderline concentric left ventricular hypertrophy. 4. Overall left ventricular systolic function is normal with, an EF between 55 - 60 %. 5. The right ventricle is severely enlarged. 6. Normal LA size by volume 22+/-6 ml/m2. 7. The right atrium is normal in size. 8. Aneurysmal Interatrial septum. 9. The aortic valve is trileaflet and appears structurally normal. 10. The mitral valve leaflets are mildly thickened. 11. Mild mitral annular calcification present. 12. Mild mitral regurgitation is present. 13. Mild tricuspid regurgitation present. 14. There is moderate pulmonary hypertension. 15. The right ventricular systolic pressure, as measured by Doppler, is 48.45mmHg. 16. Trace/mild (physiologic) pulmonic regurgitation. 17. The aortic root size is normal. 18. IVC Not well visulized. 19. There is no pericardial effusion. SUPERVISOR [employer] ROOM: Patrizia Gore RDCS
== END 2019-11-21 14:23 | disposition hospice, home (50) | DRG 196 ==
LOC: EC 13:44 → 3SCARD 16:55
PROVIDERS: ADMIT Hospitalist; ATTEND Hospitalist
DX: J84.112 Idiopathic pulmonary fibrosis (principal); I21.4 Non-ST elevation (NSTEMI) myocardial infarction; I50.33 Acute on chronic diastolic (congestive) heart failure; J96.21 Acute and chronic respiratory failure with hypoxia; J44.1 Chronic obstructive pulmonary disease with (acute) exacerbation; E87.1 Hypo-osmolality and hyponatremia; J44.0 Chronic obstructive pulmonary disease with (acute) lower respiratory infection; J84.9 Interstitial pulmonary disease, unspecified; J20.9 Acute bronchitis, unspecified; E09.9 Drug or chemical induced diabetes mellitus without complications; K21.9 Gastro-esophageal reflux disease without esophagitis; K57.90 Diverticulosis of intestine, part unspecified, without perforation or abscess without bleeding; N20.0 Calculus of kidney; T38.0X5A Adverse effect of glucocorticoids and synthetic analogues, initial encounter; Z20.828 Contact with and (suspected) exposure to other viral communicable diseases; R31.9 Hematuria, unspecified; Z79.52 Long term (current) use of systemic steroids; Z79.899 Other long term (current) drug therapy; Z87.442 Personal history of urinary calculi; Z87.891 Personal history of nicotine dependence; Z90.49 Acquired absence of other specified parts of digestive tract; Z51.5 Encounter for palliative care
CPT/HCPCS: 36415; 71045; 74176; 80048; 80053; 81001; 82550; 82553; 83605; 83735; 83880; 84484; 85025; 85027; 85610; 85730; 93005; 93306; 94760; 96361; 96374; 99291

== ENCOUNTER 2019-11-21 13:11 | Inpatient (IN) | payer MEDICAID ==
[2019-11-21] MEDS ORDERED: MORPHINE SULFATE 2 MG/ML SYRINGE IV PRN (13:38)
[2019-11-21] MEDS ORDERED: ATROPINE OPHTH SOLN 1% 5ML BTL SUBLINGUAL PRN (13:38)
[2019-11-21] MEDS ORDERED: ACETAMINOPHEN TAB 325 MG TAB PO PRN (13:38)
[2019-11-21] MEDS ORDERED: LORazepam 2 MG/ML INJ IV PRN (13:38)
[2019-11-21] MEDS ORDERED: SCOPOLAMINE 1.5MG/72HR PATCH TRANSDERM PRN (13:38)
[2019-11-21] MEDS ORDERED: ONDANSETRON 4 MG/2 ML VIAL IVP PRN (13:38)
--- NOTE | 2019-11-21 16:15 | P.PN ---
Subjective Progress Note Date: 11/21/19 This is a 74-year-old gentleman who was admitted to the hospital with increasing shortness of breath. Had positive troponin values. Patient has been on medical therapy. His respiratory status hasn't improved. Patient doesn't want any aggressive cardiac workup. We'll continue maximal medical therapy Objective - Vital Signs Vital signs: Intake & Output 11/20/19 11/21/19 11/21/19 18:59 06:59 18:59 Weight 76 kg - Exam GENERAL EXAM: Patient is alert and oriented and appears to be in moderate to severe distress HEENT: Normocephalic. Normal reaction of pupils, equal size, normal range of extraocular motion. No erythema or exudates in the throat. NECK: No masses, no nuchal rigidity. CHEST: No chest wall deformity. LUNGS: Diminished air entry bilaterally HEART: S1 and S2 normal with no audible mumurs or gallops. Regular rhythm, femorals equal on both sides.. ABDOMEN: No hepatosplenomegaly, normal bowel sounds, no guarding or rigidity. SKIN: No rashes CENTRAL NERVOUS SYSTEM: No focal deficits. EXTREMITIES: No cyanosis, clubbing or edema. Assessment and Plan (1) Acute exacerbation of chronic obstructive pulmonary disease Current Visit: No Status: Acute Code(s): J44.1 - CHRONIC OBSTRUCTIVE PULMONARY DISEASE W (ACUTE) EXACERBATION SNOMED Code(s): 016715098 (2) Acute respiratory failure Current Visit: No Status: Acute Code(s): J96.00 - ACUTE RESPIRATORY FAILURE, UNSP W HYPOXIA OR HYPERCAPNIA SNOMED Code(s): 63596346 (3) Congestive heart failure Current Visit: No Status: Acute Code(s): I50.9 - HEART FAILURE, UNSPECIFIED SNOMED Code(s): 08021041 (4) Non-STEMI (non-ST elevated myocardial infarction) Current Visit: No Status: Acute Code(s): I21.4 - NON-ST ELEVATION (NSTEMI) MYOCARDIAL INFARCTION SNOMED Code(s): 60592528 Plan: Patient doesn't want any aggressive measures. Continue current medical therapy. We'll see him when necessary
[2019-11-21] MEDS: LORazepam 0.5 MG TAB PO PRN ×2 (16:51→22:29)
[2019-11-21] MEDS: MORPHINE ORAL SOLN 10 MG/5 ML CUP PO PRN (17:16)
[2019-11-21] MEDS ORDERED: TAMSULOSIN 0.4 MG CAP.ER.24H PO SCH (21:00)
[2019-11-21] MEDS ORDERED: PANTOPRAZOLE 40 MG TABLET PO SCH (21:00)
[2019-11-22 05:07] VITALS: RESP 20
[2019-11-22] MEDS: LORazepam 0.5 MG TAB PO PRN (08:09)
[2019-11-22 08:20] VITALS: PULSE 110
[2019-11-22] MEDS ORDERED: LOPERAMIDE 2 MG CAP PO STA (08:36)
[2019-11-22] MEDS ORDERED: LOPERAMIDE 2 MG CAP PO PRN (08:36)
[2019-11-22] MEDS ORDERED: predniSONE 20 MG TAB PO SCH (09:00)
[2019-11-22] MEDS ORDERED: predniSONE 10 MG TAB PO SCH (09:00)
--- NOTE | 2019-11-22 10:36 | P.DS ---
Providers Date of admission: 11/21/19 14:34 Attending physician: Loni Crouch Primary care physician: Savanna Magana [facility] Course: Refer to [facility] for further details Plan - Discharge Summary New Discharge Prescriptions: New LORazepam [Ativan] 0.5 mg PO Q4H PRN tab PRN Reason: Anxiety Loperamide [Imodium] 2 mg PO QID PRN #30 cap PRN Reason: Diarrhea Atropine Ophth Soln 1% 5Ml [Isopto Atropine 1% 5Ml] 2 drops SUBLINGUAL Q4HR PRN bottle PRN Reason: Excess Secretions MORPHINE ORAL CYDNEY 2mg/mL [Morphine Oral Soln 2 MG/ML] 0.5 mg PO Q2H PRN ml PRN Reason: SHORTNESS OF BREATH predniSONE 10 mg PO DIRECTED #60 tab Scopolamine 1.5MG/72Hr Patch [TransDerm Scop] 1 patch TRANSDERM Q72H PRN patch PRN Reason: Secretions Acetaminophen Tab [Tylenol] 650 mg PO Q4HR PRN tab PRN Reason: Fever And/Or Mild Pain Continue ALPRAZolam [Xanax] 0.25 mg PO BID PRN PRN Reason: Anxiety Tamsulosin [Flomax] 0.4 mg PO HS Omeprazole Magnesium [PriLOSEC OTC] 20 mg PO HS Discontinued predniSONE 10 mg PO DAILY Ciprofloxacin HCl [Cipro] 500 mg PO Q12HR Discharge Medication List ALPRAZolam [Xanax] 0.25 mg PO BID PRN 11/17/19 [History] Omeprazole Magnesium [PriLOSEC OTC] 20 mg PO HS 11/17/19 [History] Tamsulosin [Flomax] 0.4 mg PO HS 11/17/19 [History] Acetaminophen Tab [Tylenol] 650 mg PO Q4HR PRN tab 11/22/19 [Rx] Atropine Ophth Soln 1% 5Ml [Isopto Atropine 1% 5Ml] 2 drops SUBLINGUAL Q4HR PRN bottle 11/22/19 [Rx] LORazepam [Ativan] 0.5 mg PO Q4H PRN tab 11/22/19 [Rx] Loperamide [Imodium] 2 mg PO QID PRN #30 cap 11/22/19 [Rx] MORPHINE ORAL CYDNEY 2mg/mL [Morphine Oral Soln 2 MG/ML] 0.5 mg PO Q2H PRN ml 11/22/19 [Rx] Scopolamine 1.5MG/72Hr Patch [TransDerm Scop] 1 patch TRANSDERM Q72H PRN patch 11/22/19 [Rx] predniSONE 10 mg PO DIRECTED #60 tab 11/22/19 [Rx] Activity/Diet/Wound Care/Special Instructions: Activity as tolerated home with [facility] hospice continue prednisone taper imodium as needed comfort care continue current diet Discharge Disposition: HOME WITH HOSPICE
--- NOTE | 2019-11-22 10:36 | P.HPIM ---
History of Present Illness 74-year-old male was admitted for acute hypoxic respiratory failure secondary to pulmonary fibrosis. Patient is on systemic steroids didn't have any significant improvement patient was subsequently made hospice after family and patient decided on that. Patient will be discharged today to home with home hospice Review of Systems Shortness of breath significantly improved since admission and now and patient is comfortable. improved with rest of the review of systems are negative except those mentioned here. 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 History of Any Multi-Drug Resistant Organisms: None Reported Past Surgical History: Cholecystectomy Past Anesthesia/Blood Transfusion Reactions: No Reported Reaction Smoking Status: Former smoker Medications and Allergies Home Medications Medication Instructions Recorded Confirmed Type ALPRAZolam [Xanax] 0.25 mg PO BID PRN 11/17/19 11/21/19 History Omeprazole Magnesium [PriLOSEC OTC] 20 mg PO HS 11/17/19 11/21/19 History Tamsulosin [Flomax] 0.4 mg PO HS 11/17/19 11/21/19 History Acetaminophen Tab [Tylenol] 650 mg PO Q4HR PRN tab 11/22/19 Rx Atropine Ophth Soln 1% 5Ml [Isopto 2 drops SUBLINGUAL Q4HR PRN bottle 11/22/19 Rx Atropine 1% 5Ml] LORazepam [Ativan] 0.5 mg PO Q4H PRN tab 11/22/19 Rx Loperamide [Imodium] 2 mg PO QID PRN #30 cap 11/22/19 Rx MORPHINE ORAL CYDNEY 2mg/mL [Morphine 0.5 mg PO Q2H PRN ml 11/22/19 Rx Oral Soln 2 MG/ML] Scopolamine 1.5MG/72Hr Patch 1 patch TRANSDERM Q72H PRN patch 11/22/19 Rx [TransDerm Scop] predniSONE 10 mg PO DIRECTED #60 tab 11/22/19 Rx Allergies Allergy/AdvReac Type Severity Reaction Status Date / Time No Known Allergies Allergy Verified 11/21/19 15:37 Physical Exam Vitals: Vital Signs Pulse Resp Pulse Ox 11/22/19 08:00 110 H 20 89 L 11/22/19 04:00 97 20 88 L 11/22/19 00:00 95 22 89 L 11/21/19 20:00 105 H 24 85 L 11/21/19 18:30 114 H 20 89 L 11/21/19 16:40 111 H 20 91 L Intake and Output 11/21/19 11/22/19 11/22/19 22:59 06:59 14:59 Intake Total 300 Balance 300 Intake: Oral 300 Other: # Voids 1 1 # Bowel Movements 1 1 PHYSICAL EXAMINATION: GENERAL: The patient is alert and oriented x3, not in any acute distress. Well developed, well nourished. HEENT: Pupils are round and equally reacting to light. EOMI. No scleral icterus. No conjunctival pallor. Normocephalic, atraumatic. No pharyngeal erythema. No thyromegaly. CARDIOVASCULAR: S1 and S2 present. No murmurs, rubs, or gallops. PULMONARY: Fine crackles on exam ABDOMEN: Soft, nontender, nondistended, normoactive bowel sounds. No palpable organomegaly. MUSCULOSKELETAL: No joint swelling or deformity. EXTREMITIES: No cyanosis, clubbing, or pedal edema. NEUROLOGICAL: Gross neurological examination did not reveal any focal deficits. SKIN: No rashes. Assessment and Plan Plan: Acute hypoxic respiratory failure secondary to pulmonary fibrosis and tracheobronchitis no evidence of COPD Rest of the medical problems and hospice physician goes please refer to documentation from lisa Crouch from yesterday
[2019-11-22] MEDS: MORPHINE ORAL SOLN 10 MG/5 ML CUP PO PRN (10:54)
== END 2019-11-22 11:06 | disposition hospice, home (50) | DRG 951 ==
LOC: 3SCARD 14:34
PROVIDERS: ADMIT Hospitalist; ATTEND Hospitalist
DX: Z51.5 Encounter for palliative care (principal); J96.01 Acute respiratory failure with hypoxia; I21.4 Non-ST elevation (NSTEMI) myocardial infarction; J44.1 Chronic obstructive pulmonary disease with (acute) exacerbation; I50.9 Heart failure, unspecified; J84.10 Pulmonary fibrosis, unspecified; E11.9 Type 2 diabetes mellitus without complications; Z66 Do not resuscitate; J40 Bronchitis, not specified as acute or chronic; F41.9 Anxiety disorder, unspecified; R19.7 Diarrhea, unspecified; Z79.899 Other long term (current) drug therapy; Z90.49 Acquired absence of other specified parts of digestive tract; Z87.891 Personal history of nicotine dependence